=== PATIENT | female | born 1945 | race Caucasian/White ===

== ENCOUNTER 2018-03-13 00:57 | Inpatient (IN) ==
[2018-03-13 01:36] LABS: Baso # (Auto) 0.1 th/mm3 (0.0-0.2); Baso % (Auto) 0.6 % (0.0-2.0); Eos # (Auto) 0.2 th/mm3 (0.0-0.4); Eos % (Auto) 1.4 % (0.0-4.0); Hematocrit 51.8 % (35.0-46.0); Hemoglobin 16.8 gm/dL (11.6-15.3); Lymph # (Auto) 4.5 th/mm3 (1.0-4.8); Lymph % (Auto) 29.3 % (9.0-44.0); Mean Corpuscular HGB Conc 32.5 % (32.0-36.0); Mean Corpuscular Hemoglobin 27.7 pg (27.0-34.0); Mean Corpuscular Volume 85.3 fL (80.0-100.0); Mean Platelet Volume 9.9 fL (7.0-11.0); Mono # (Auto) 1.2 th/mm3 (0.0-0.9); Mono % (Auto) 7.5 % (0.0-8.0); Neut # (Auto) 9.5 th/mm3 (1.8-7.7); Neut % (Auto) 61.2 % (16.0-70.0); Platelet Count 215 th/mm3 (150-450); Red Blood Count 6.07 mil/mm3 (4.00-5.30); Red Cell Distribution Width 14.5 % (11.6-17.2); White Blood Count 15.5 th/mm3 (4.0-11.0)
[2018-03-13 01:41] LABS: ABG Base Excess -4.3 mmol/L (-2-2); ABG PCO2 46 mmHg (38-42); ABG PO2 155 mmHg (61-120)
[2018-03-13 01:45] LABS: Chloride 102 meq/L (98-107); Potassium 3.6 meq/L (3.5-5.1); Sodium 139 meq/L (136-145)
[2018-03-13 01:48] LABS: Calcium 8.2 mg/dL (8.5-10.1)
[2018-03-13 01:49] LABS: Albumin 3.3 g/dL (3.4-5.0); Anion Gap 18 meq/L (5-15); Blood Urea Nitrogen 18 mg/dL (7-18); Glucose,Random 185 mg/dL (74-106)
[2018-03-13 01:52] LABS: Alanine Aminotransferase 34 U/L (10-53); Aspartate Aminotransferase 29 U/L (15-37); Glomerular Filtration Rate 32 mL/min (>89)
[2018-03-13 01:53] LABS: Total Protein 7.6 g/dL (6.4-8.2)
[2018-03-13 01:55] LABS: Alkaline Phosphatase 154 U/L (45-117)
--- NOTE | 2018-03-13 01:55 | XR ---
EXAM DATE: 03/13/2018 1:23 AM EDT AGE/SEX: 72 years / Female INDICATIONS: . Short of breath. CLINICAL DATA: This is the patient's initial encounter. Patient reports that signs and symptoms have been present for 1 day and indicates a pain score of 0/10. MEDICAL/SURGICAL HISTORY: None. None. COMPARISON: No prior exams available for comparison. FINDINGS: The heart size is within normal limits. There is diffuse mixed interstitial and alveolar consolidatio n. There is a suspected calcified granuloma at the right base. Clips are seen over the right lower ch est. There appears to be postoperative change at the right sixth rib. CONCLUSION: Diffuse mixed interstitial and alveolar consolidation likely related to edema. Absence of the right sixth rib. This is likely postoperative change. If the patient did not have surg pham, and destruction would need to be considered. Electronically signed by: Karson Flores MD 03/13/2018 1:54 AM EDT
[2018-03-13 01:57] LABS: Troponin I 0.02 ng/mL (0.02-0.05)
--- NOTE | 2018-03-13 02:07 | ED ---
HPI General Chief Complaint: Shortness of Breath/Dyspnea Stated Complaint: EVAC/Resp failure Time Seen by Provider: 03/13/18 01:14 Source: patient and EMS Mode of arrival: EMS Limitations: altered mental status History of Present Illness Patient presents with history of cough postnasal drip and voice changes for the last 2 weeks. Tonight she had a panic attack went into the bathroom and came back saying that she could not take a deep breath and passed out. called rescue who responded and intubated and brought the patient to this emergency department. Patient was sedated and had good breath sounds bilaterally on presentation. Related Data Home Medications Medication Instructions Recorded Confirmed No Known Home Medications 03/13/18 03/13/18 Allergies Allergy/AdvReac Type Severity Reaction Status Date / Time Penicillins Allergy Severe Anaphylaxis Verified 03/13/18 01:11 moxifloxacin [From Avelox] Allergy Anaphylaxis Verified 03/13/18 01:11 naproxen Allergy Anaphylaxis Verified 03/13/18 01:11 Sulfa (Sulfonamide Allergy Anaphylaxis Verified 03/13/18 01:11 Antibiotics) Review of Systems ROS: all other systems reviewed are negative [facility] Social History Social History Substance History: No History of Abuse Second Hand Smoke Exposure: No Smoking Status: Never smoker How Often Do You Have a Drink Containing Alcohol: Monthly or less Recent Travel in [place] within the Last 8 Weeks: Yes Recent Out of Country Travel within the Last 8 Weeks: No Immunization History Tetanus Immunization: Unsure Hx Influenza Vaccine This Season: No Exam Narrative Exam Narrative: GENERAL: Patient presented intubated secondary to respiratory distress prior to arrival. Patient sedated with Versed prior to arrival. SKIN: Focused skin assessment warm/dry. HEAD: Atraumatic. Normocephalic. EYES: Pupils equal and round. No scleral icterus. No injection or drainage. ENT: No nasal bleeding or discharge. Mucous membranes pink and moist. NECK: Trachea midline. No JVD. CARDIOVASCULAR: Regular rate and rhythm. No murmur appreciated. RESPIRATORY: Patient had rales and rhonchi in both sides with breath sounds bilaterally. GASTROINTESTINAL: Abdomen soft,nondistended. Hepatic and splenic margins not palpable. MUSCULOSKELETAL: No obvious deformities. No clubbing. No cyanosis. No edema. NEUROLOGICAL: Initially unresponsive. Course Reevaluation(s) Reevaluation #1: Patient fighting intubation and able to ventilate with no resistance. Alternative of either sedation or extubation. Given the patient had such good respiration without assistance I made the decision to extubate the patient. This was done without difficulty and patient responded and was alert and functional and able to breathe on her own without assistance. Patient still had rales and rhonchi bilaterally and patient responded well to oxygen flow. Time: 01:12 Reevaluation #2: Chest x-ray shows infiltrate consistent with aspiration. Patient stable. Patient has no difficulty maintaining respiration on her own. Time: 03:31 Initial Documented Vital Signs Respiratory Rate 32 H 03/13/18 01:00 Pulse Oximetry 98 03/13/18 01:00 Last Documented Vital Signs Temperature 98.4 F 03/14/18 00:02 Pulse Rate 84 03/14/18 03:02 Respiratory Rate 21 03/14/18 03:02 Blood Pressure 142/74 H 03/14/18 03:02 Pulse Oximetry 91 L 03/14/18 03:02 Critical Care Time Critical Care Time: Yes Total Critical Care Time: 90 Attestation: Not applicable Medical Decision Making MDM Narrative Medical decision making narrative: Patient came in intubated secondary to what is perceived to be aspiration. Patient had history consistent with sinusitis for 2 weeks. Patient has a leukocytosis secondary to stress with no left shift Medical Screen Exam Complete: Yes Emergency Medical Condition: Yes Lab Data Result diagrams: 03/13/18 06:50 03/13/18 13:12 Lab Results 03/13/18 03/13/18 03/13/18 Range/Units 01:20 01:20 01:20 CBC w Diff Auto diff final WBC 15.5 H (4.0-11.0) th/mm3 RBC 6.07 H (4.00-5.30) mil/mm3 Hgb 16.8 H (11.6-15.3) gm/dL Hct 51.8 H (35.0-46.0) % MCV 85.3 (80.0-100.0) fL MCH 27.7 (27.0-34.0) pg MCHC 32.5 (32.0-36.0) % RDW 14.5 (11.6-17.2) % Plt Count 215 (150-450) th/mm3 MPV 9.9 (7.0-11.0) fL Neut % (Auto) 61.2 (16.0-70.0) % Lymph % (Auto) 29.3 (9.0-44.0) % [place] % (Auto) 7.5 (0.0-8.0) % Eos % (Auto) 1.4 (0.0-4.0) % Baso % (Auto) 0.6 (0.0-2.0) % Neut # (Auto) 9.5 H (1.8-7.7) th/mm3 Lymph # (Auto) 4.5 (1.0-4.8) th/mm3 [place] # (Auto) 1.2 H (0.0-0.9) th/mm3 Eos # (Auto) 0.2 (0.0-0.4) th/mm3 Baso # (Auto) 0.1 (0.0-0.2) th/mm3 WBC Differential . Differential Comment . ESR (0-30) mm/hr PT (9.8-11.6) sec INR Ratio APTT (24.3-30.1) sec D-Dimer Quant (PE/DVT) (0.00-0.50) mg/L FEU Puncture Site Patient Temperature O2 Saturation (90-100) % ABG pH (7.380-7.420) ABG pCO2 (38-42) mmHg ABG pO2 (61-120) mmHg ABG HCO3 (22-26) mmol/L ABG O2 Content (12.0-20.0) Vol % ABG Base Excess (-2-2) mmol/L ABG Methemoglobin (0-2) % Freedom Test Hemoglobin (12.0-16.0) G/DL Carboxyhemoglobin (0-4) % O2 Delivery Device Liter Flow L/M Critical Value Sodium 139 (136-145) meq/L Potassium 3.6 (3.5-5.1) meq/L Chloride 102 (98-107) meq/L Carbon Dioxide 19.0 L (21.0-32.0) meq/L Anion Gap 18 H (5-15) meq/L BUN 18 (7-18) mg/dL Creatinine 1.60 H (0.50-1.00) mg/dL Estimated GFR 32 L (>89) mL/min POC Glucose (68-110) mg/dl Random Glucose 185 H (74-106) mg/dL Lactic Acid (0.4-2.0) mmol/L Calcium 8.2 L (8.5-10.1) mg/dL Total Bilirubin 0.4 (0.2-1.0) mg/dL AST 29 (15-37) U/L ALT 34 (10-53) U/L Alkaline Phosphatase 154 H (45-117) U/L Troponin I 0.02 (0.02-0.05) ng/mL B-Natriuretic Peptide 397 H (0-100) pg/mL Total Protein 7.6 (6.4-8.2) g/dL Albumin 3.3 L (3.4-5.0) g/dL TSH (0.358-3.740) uIU/mL Urine Color (Yellw/Straw) Urine Clarity (Clear) Urine pH (5.0-8.5) Ur Specific [place] (1.002-1.035) Urine Protein (Neg-Trace) mg/dL Urine Glucose (UA) (Negative) mg/dL Urine Ketones (Negative) mg/dL Urine Occult Blood (Negative) Urine Nitrate (Negative) Urine Bilirubin (Negative) Urine Urobilinogen (Less than 2) mg/dL Ur Leukocyte Esterase (Negative) Urine WBC (0-5) /hpf Ur Squamous Epith Cells (0-5) /hpf Amorphous Sediment (None) /hpf Hyaline Casts (0-3) /lpf Granular Casts (None) /lpf Micro UA Comment Ur Microscopic Review Urine Culture Comments Nasal Screen MRSA (PCR) (Negative) Rheumatoid Factor Scrn (Negative) Rheumatoid Factor Titer 03/13/18 03/13/18 03/13/18 Range/Units 01:30 03:13 03:13 CBC w Diff WBC (4.0-11.0) th/mm3 RBC (4.00-5.30) mil/mm3 Hgb (11.6-15.3) gm/dL Hct (35.0-46.0) % MCV (80.0-100.0) fL MCH (27.0-34.0) pg MCHC (32.0-36.0) % RDW (11.6-17.2) % Plt Count (150-450) th/mm3 MPV (7.0-11.0) fL Neut % (Auto) (16.0-70.0) % Lymph % (Auto) (9.0-44.0) % [place] % (Auto) (0.0-8.0) % Eos % (Auto) (0.0-4.0) % Baso % (Auto) (0.0-2.0) % Neut # (Auto) (1.8-7.7) th/mm3 Lymph # (Auto) (1.0-4.8) th/mm3 [place] # (Auto) (0.0-0.9) th/mm3 Eos # (Auto) (0.0-0.4) th/mm3 Baso # (Auto) (0.0-0.2) th/mm3 WBC Differential Differential Comment ESR (0-30) mm/hr PT (9.8-11.6) sec INR Ratio APTT (24.3-30.1) sec D-Dimer Quant (PE/DVT) 5.88 H (0.00-0.50) mg/L FEU Puncture Site Left radial Patient Temperature 98.6 O2 Saturation 97 (90-100) % ABG pH 7.29 L* (7.380-7.420) ABG pCO2 46 H (38-42) mmHg ABG pO2 155 H (61-120) mmHg ABG HCO3 21 L (22-26) mmol/L ABG O2 Content 22.5 H (12.0-20.0) Vol % ABG Base Excess -4.3 L (-2-2) mmol/L ABG Methemoglobin 1.2 (0-2) % Freedom Test Present Hemoglobin 16.4 H (12.0-16.0) G/DL Carboxyhemoglobin 0.7 (0-4) % O2 Delivery Device Non-rebreathing mask Liter Flow 15.00 L/M Critical Value Yes Sodium (136-145) meq/L Potassium (3.5-5.1) meq/L Chloride (98-107) meq/L Carbon Dioxide (21.0-32.0) meq/L Anion Gap (5-15) meq/L BUN (7-18) mg/dL Creatinine (0.50-1.00) mg/dL Estimated GFR (>89) mL/min POC Glucose (68-110) mg/dl Random Glucose (74-106) mg/dL Lactic Acid 2.0 (0.4-2.0) mmol/L Calcium (8.5-10.1) mg/dL Total Bilirubin (0.2-1.0) mg/dL AST (15-37) U/L ALT (10-53) U/L Alkaline Phosphatase (45-117) U/L Troponin I (0.02-0.05) ng/mL B-Natriuretic Peptide (0-100) pg/mL Total Protein (6.4-8.2) g/dL Albumin (3.4-5.0) g/dL TSH (0.358-3.740) uIU/mL Urine Color (Yellw/Straw) Urine Clarity (Clear) Urine pH (5.0-8.5) Ur Specific [place] (1.002-1.035) Urine Protein (Neg-Trace) mg/dL Urine Glucose (UA) (Negative) mg/dL Urine Ketones (Negative) mg/dL Urine Occult Blood (Negative) Urine Nitrate (Negative) Urine Bilirubin (Negative) Urine Urobilinogen (Less than 2) mg/dL Ur Leukocyte Esterase (Negative) Urine WBC (0-5) /hpf Ur Squamous Epith Cells (0-5) /hpf Amorphous Sediment (None) /hpf Hyaline Casts (0-3) /lpf Granular Casts (None) /lpf Micro UA Comment Ur Microscopic Review Urine Culture Comments Nasal Screen MRSA (PCR) (Negative) Rheumatoid Factor Scrn (Negative) Rheumatoid Factor Titer 03/13/18 03/13/18 03/13/18 Range/Units 04:45 04:45 05:45 CBC w Diff WBC (4.0-11.0) th/mm3 RBC (4.00-5.30) mil/mm3 Hgb (11.6-15.3) gm/dL Hct (35.0-46.0) % MCV (80.0-100.0) fL MCH (27.0-34.0) pg MCHC (32.0-36.0) % RDW (11.6-17.2) % Plt Count (150-450) th/mm3 MPV (7.0-11.0) fL Neut % (Auto) (16.0-70.0) % Lymph % (Auto) (9.0-44.0) % [place] % (Auto) (0.0-8.0) % Eos % (Auto) (0.0-4.0) % Baso % (Auto) (0.0-2.0) % Neut # (Auto) (1.8-7.7) th/mm3 Lymph # (Auto) (1.0-4.8) th/mm3 [place] # (Auto) (0.0-0.9) th/mm3 Eos # (Auto) (0.0-0.4) th/mm3 Baso # (Auto) (0.0-0.2) th/mm3 WBC Differential Differential Comment ESR (0-30) mm/hr PT (9.8-11.6) sec INR Ratio APTT 27.2 (24.3-30.1) sec D-Dimer Quant (PE/DVT) (0.00-0.50) mg/L FEU Puncture Site Patient Temperature O2 Saturation (90-100) % ABG pH (7.380-7.420) ABG pCO2 (38-42) mmHg ABG pO2 (61-120) mmHg ABG HCO3 (22-26) mmol/L ABG O2 Content (12.0-20.0) Vol % ABG Base Excess (-2-2) mmol/L ABG Methemoglobin (0-2) % Freedom Test Hemoglobin (12.0-16.0) G/DL Carboxyhemoglobin (0-4) % O2 Delivery Device Liter Flow L/M Critical Value Sodium (136-145) meq/L Potassium (3.5-5.1) meq/L Chloride (98-107) meq/L Carbon Dioxide (21.0-32.0) meq/L Anion Gap (5-15) meq/L BUN (7-18) mg/dL Creatinine (0.50-1.00) mg/dL Estimated GFR (>89) mL/min POC Glucose (68-110) mg/dl Random Glucose (74-106) mg/dL Lactic Acid (0.4-2.0) mmol/L Calcium (8.5-10.1) mg/dL Total Bilirubin (0.2-1.0) mg/dL AST (15-37) U/L ALT (10-53) U/L Alkaline Phosphatase (45-117) U/L Troponin I (0.02-0.05) ng/mL B-Natriuretic Peptide (0-100) pg/mL Total Protein (6.4-8.2) g/dL Albumin (3.4-5.0) g/dL TSH (0.358-3.740) uIU/mL Urine Color Yellow (Yellw/Straw) Urine Clarity Clear (Clear) Urine pH 6.0 (5.0-8.5) Ur Specific [place] 1.015 (1.002-1.035) Urine Protein Trace (Neg-Trace) mg/dL Urine Glucose (UA) Negative (Negative) mg/dL Urine Ketones Negative (Negative) mg/dL Urine Occult Blood Trace (Negative) Urine Nitrate Negative (Negative) Urine Bilirubin Negative (Negative) Urine Urobilinogen 0.2 (Less than 2) mg/dL Ur Leukocyte Esterase Negative (Negative) Urine WBC 0-5 (0-5) /hpf Ur Squamous Epith Cells 0-5 (0-5) /hpf Amorphous Sediment Occ H (None) /hpf Hyaline Casts 0-3 (0-3) /lpf Granular Casts 1-3 H (None) /lpf Micro UA Comment Culture not ind Ur Microscopic Review Microscopic reviewed Urine Culture Comments Culture not ind Nasal Screen MRSA (PCR) Not detected (Negative) Rheumatoid Factor Scrn (Negative) Rheumatoid Factor Titer 03/13/18 03/13/18 03/13/18 Range/Units 05:45 06:50 06:50 CBC w Diff WBC 17.7 H (4.0-11.0) th/mm3 RBC 6.03 H (4.00-5.30) mil/mm3 Hgb 16.6 H (11.6-15.3) gm/dL Hct 51.5 H (35.0-46.0) % MCV 85.3 (80.0-100.0) fL MCH 27.5 (27.0-34.0) pg MCHC 32.3 (32.0-36.0) % RDW 15.0 (11.6-17.2) % Plt Count 188 (150-450) th/mm3 MPV 10.3 (7.0-11.0) fL Neut % (Auto) (16.0-70.0) % Lymph % (Auto) (9.0-44.0) % [place] % (Auto) (0.0-8.0) % Eos % (Auto) (0.0-4.0) % Baso % (Auto) (0.0-2.0) % Neut # (Auto) (1.8-7.7) th/mm3 Lymph # (Auto) (1.0-4.8) th/mm3 [place] # (Auto) (0.0-0.9) th/mm3 Eos # (Auto) (0.0-0.4) th/mm3 Baso # (Auto) (0.0-0.2) th/mm3 WBC Differential Differential Comment ESR (0-30) mm/hr PT 11.4 (9.8-11.6) sec INR 1.1 Ratio APTT (24.3-30.1) sec D-Dimer Quant (PE/DVT) (0.00-0.50) mg/L FEU Puncture Site Patient Temperature O2 Saturation (90-100) % ABG pH (7.380-7.420) ABG pCO2 (38-42) mmHg ABG pO2 (61-120) mmHg ABG HCO3 (22-26) mmol/L ABG O2 Content (12.0-20.0) Vol % ABG Base Excess (-2-2) mmol/L ABG Methemoglobin (0-2) % [place] Test Hemoglobin (12.0-16.0) G/DL Carboxyhemoglobin (0-4) % O2 Delivery Device Liter Flow L/M Critical Value Sodium (136-145) meq/L Potassium (3.5-5.1) meq/L Chloride (98-107) meq/L Carbon Dioxide (21.0-32.0) meq/L Anion Gap (5-15) meq/L BUN (7-18) mg/dL Creatinine (0.50-1.00) mg/dL Estimated GFR (>89) mL/min POC Glucose (68-110) mg/dl Random Glucose (74-106) mg/dL Lactic Acid (0.4-2.0) mmol/L Calcium (8.5-10.1) mg/dL Total Bilirubin (0.2-1.0) mg/dL AST (15-37) U/L ALT (10-53) U/L Alkaline Phosphatase (45-117) U/L Troponin I 0.17 H D (0.02-0.05) ng/mL B-Natriuretic Peptide (0-100) pg/mL Total Protein (6.4-8.2) g/dL Albumin (3.4-5.0) g/dL TSH (0.358-3.740) uIU/mL Urine Color (Yellw/Straw) Urine Clarity (Clear) Urine pH (5.0-8.5) Ur Specific [place] (1.002-1.035) Urine Protein (Neg-Trace) mg/dL Urine Glucose (UA) (Negative) mg/dL Urine Ketones (Negative) mg/dL Urine Occult Blood (Negative) Urine Nitrate (Negative) Urine Bilirubin (Negative) Urine Urobilinogen (Less than 2) mg/dL Ur Leukocyte Esterase (Negative) Urine WBC (0-5) /hpf Ur Squamous Epith Cells (0-5) /hpf Amorphous Sediment (None) /hpf Hyaline Casts (0-3) /lpf Granular Casts (None) /lpf Micro UA Comment Ur Microscopic Review Urine Culture Comments Nasal Screen MRSA (PCR) (Negative) Rheumatoid Factor Scrn (Negative) Rheumatoid Factor Titer 03/13/18 03/13/18 03/13/18 Range/Units 06:50 13:12 13:12 CBC w Diff WBC (4.0-11.0) th/mm3 RBC (4.00-5.30) mil/mm3 Hgb (11.6-15.3) gm/dL Hct (35.0-46.0) % MCV (80.0-100.0) fL MCH (27.0-34.0) pg MCHC (32.0-36.0) % RDW (11.6-17.2) % Plt Count (150-450) th/mm3 MPV (7.0-11.0) fL Neut % (Auto) (16.0-70.0) % Lymph % (Auto) (9.0-44.0) % [place] % (Auto) (0.0-8.0) % Eos % (Auto) (0.0-4.0) % Baso % (Auto) (0.0-2.0) % Neut # (Auto) (1.8-7.7) th/mm3 Lymph # (Auto) (1.0-4.8) th/mm3 [place] # (Auto) (0.0-0.9) th/mm3 Eos # (Auto) (0.0-0.4) th/mm3 Baso # (Auto) (0.0-0.2) th/mm3 WBC Differential Differential Comment ESR (0-30) mm/hr PT (9.8-11.6) sec INR Ratio APTT (24.3-30.1) sec D-Dimer Quant (PE/DVT) (0.00-0.50) mg/L FEU Puncture Site Patient Temperature O2 Saturation (90-100) % ABG pH (7.380-7.420) ABG pCO2 (38-42) mmHg ABG pO2 (61-120) mmHg ABG HCO3 (22-26) mmol/L ABG O2 Content (12.0-20.0) Vol % ABG Base Excess (-2-2) mmol/L ABG Methemoglobin (0-2) % Freedom Test Hemoglobin (12.0-16.0) G/DL Carboxyhemoglobin (0-4) % O2 Delivery Device Liter Flow L/M Critical Value Sodium 141 (136-145) meq/L Potassium 3.5 (3.5-5.1) meq/L Chloride 104 (98-107) meq/L Carbon Dioxide 25.0 (21.0-32.0) meq/L Anion Gap 12 (5-15) meq/L BUN 18 (7-18) mg/dL Creatinine 1.40 H (0.50-1.00) mg/dL Estimated GFR 37 L (>89) mL/min POC Glucose (68-110) mg/dl Random Glucose 180 H (74-106) mg/dL Lactic Acid (0.4-2.0) mmol/L Calcium 7.8 L (8.5-10.1) mg/dL Total Bilirubin 1.0 (0.2-1.0) mg/dL AST 30 (15-37) U/L ALT 35 (10-53) U/L Alkaline Phosphatase 113 (45-117) U/L Troponin I 0.12 H (0.02-0.05) ng/mL B-Natriuretic Peptide (0-100) pg/mL Total Protein 6.7 D (6.4-8.2) g/dL Albumin 3.1 L (3.4-5.0) g/dL TSH 0.776 (0.358-3.740) uIU/mL Urine Color (Yellw/Straw) Urine Clarity (Clear) Urine pH (5.0-8.5) Ur Specific [place] (1.002-1.035) Urine Protein (Neg-Trace) mg/dL Urine Glucose (UA) (Negative) mg/dL Urine Ketones (Negative) mg/dL Urine Occult Blood (Negative) Urine Nitrate (Negative) Urine Bilirubin (Negative) Urine Urobilinogen (Less than 2) mg/dL Ur Leukocyte Esterase (Negative) Urine WBC (0-5) /hpf Ur Squamous Epith Cells (0-5) /hpf Amorphous Sediment (None) /hpf Hyaline Casts (0-3) /lpf Granular Casts (None) /lpf Micro UA Comment Ur Microscopic Review Urine Culture Comments Nasal Screen MRSA (PCR) (Negative) Rheumatoid Factor Scrn (Negative) Rheumatoid Factor Titer 03/13/18 03/13/18 03/13/18 Range/Units 13:12 16:45 22:40 CBC w Diff WBC (4.0-11.0) th/mm3 RBC (4.00-5.30) mil/mm3 Hgb (11.6-15.3) gm/dL Hct (35.0-46.0) % MCV (80.0-100.0) fL MCH (27.0-34.0) pg MCHC (32.0-36.0) % RDW (11.6-17.2) % Plt Count (150-450) th/mm3 MPV (7.0-11.0) fL Neut % (Auto) (16.0-70.0) % Lymph % (Auto) (9.0-44.0) % [place] % (Auto) (0.0-8.0) % Eos % (Auto) (0.0-4.0) % Baso % (Auto) (0.0-2.0) % Neut # (Auto) (1.8-7.7) th/mm3 Lymph # (Auto) (1.0-4.8) th/mm3 [place] # (Auto) (0.0-0.9) th/mm3 Eos # (Auto) (0.0-0.4) th/mm3 Baso # (Auto) (0.0-0.2) th/mm3 WBC Differential Differential Comment ESR 1 (0-30) mm/hr PT (9.8-11.6) sec INR Ratio APTT (24.3-30.1) sec D-Dimer Quant (PE/DVT) (0.00-0.50) mg/L FEU Puncture Site Patient Temperature O2 Saturation (90-100) % ABG pH (7.380-7.420) ABG pCO2 (38-42) mmHg ABG pO2 (61-120) mmHg ABG HCO3 (22-26) mmol/L ABG O2 Content (12.0-20.0) Vol % ABG Base Excess (-2-2) mmol/L ABG Methemoglobin (0-2) % Freedom Test Hemoglobin (12.0-16.0) G/DL Carboxyhemoglobin (0-4) % O2 Delivery Device Liter Flow L/M Critical Value Sodium (136-145) meq/L Potassium (3.5-5.1) meq/L Chloride (98-107) meq/L Carbon Dioxide (21.0-32.0) meq/L Anion Gap (5-15) meq/L BUN (7-18) mg/dL Creatinine (0.50-1.00) mg/dL Estimated GFR (>89) mL/min POC Glucose 166 H (68-110) mg/dl Random Glucose (74-106) mg/dL Lactic Acid (0.4-2.0) mmol/L Calcium (8.5-10.1) mg/dL Total Bilirubin (0.2-1.0) mg/dL AST (15-37) U/L ALT (10-53) U/L Alkaline Phosphatase (45-117) U/L Troponin I (0.02-0.05) ng/mL B-Natriuretic Peptide (0-100) pg/mL Total Protein (6.4-8.2) g/dL Albumin (3.4-5.0) g/dL TSH (0.358-3.740) uIU/mL Urine Color (Yellw/Straw) Urine Clarity (Clear) Urine pH (5.0-8.5) Ur Specific [place] (1.002-1.035) Urine Protein (Neg-Trace) mg/dL Urine Glucose (UA) (Negative) mg/dL Urine Ketones (Negative) mg/dL Urine Occult Blood (Negative) Urine Nitrate (Negative) Urine Bilirubin (Negative) Urine Urobilinogen (Less than 2) mg/dL Ur Leukocyte Esterase (Negative) Urine WBC (0-5) /hpf Ur Squamous Epith Cells (0-5) /hpf Amorphous Sediment (None) /hpf Hyaline Casts (0-3) /lpf Granular Casts (None) /lpf Micro UA Comment Ur Microscopic Review Urine Culture Comments Nasal Screen MRSA (PCR) (Negative) Rheumatoid Factor Scrn Negative (Negative) Rheumatoid Factor Titer Not Reportable Imaging Data Radiologist's impression: Abdomen/Bladder Ultrasound 03/13/18 00:00 CONCLUSION: 1. Small cortical cyst in the left kidney. 2. Mild thickening of the anterior aspect of the bladder wall. Cystoscopy may be of benefit for further assessment.. Chest CTA 03/13/18 00:00 CONCLUSION: 1. Examination quality mildly degraded by respiratory motion artifact. However , no PE is identified. 2. Severe groundglass opacity and consolidation bilaterally, as above. As described on the a prior chest x-ray pulmonary edema is a one consideration. Other inflammatory processes are possible as well. Suggest follow-up imaging to confirm resolution. 3. Small right pleural effusion. Chest X-Ray 03/13/18 01:23 CONCLUSION: Diffuse mixed interstitial and alveolar consolidation likely related to edema. Absence of the right sixth rib. This is likely postoperative change. If the patient did not have surgery, and destruction would need to be considered. Discharge Plan Discharge Disposition Patient Disposition: 30 Still Patient Discharge Details Diagnosis: Acute respiratory distress, Aspiration into lower respiratory tract, Sinusitis Physicians Team ED Provider: Geovani Joseph Primary Care Provider: UNKNOWN, Attending Provider: Megan Hall Other Providers: Edy Wray ; Agapito Giron ; Kanu Coronado Discharge Interventions Interventions: ED Discharge Assessment Last Done: 03/13/18 03:38 Vital Signs Last Done: 03/13/18 02:37 Status ED Status: Left Department Discharge Information Discharge Date/Time: 03/13/18 04:06
[2018-03-13] MEDS ORDERED: Acetaminophen 325 MG Tablet PO PRN (02:43)
[2018-03-13] MEDS ORDERED: Bisacodyl 10 MG Supp RECTAL PRN (02:43)
[2018-03-13] MEDS ORDERED: Enoxaparin Inj 40 MG/0.4 ML Syringe SQ SCH ×2 (02:45→04:00)
[2018-03-13] MEDS ORDERED: Chlorhexidine Gluconate 2% 1 Pack (2 Cloths) TOPICAL PRN (04:00)
[2018-03-13 05:13] LABS: Bilirubin,Urine Negative (Negative); Clarity,Urine Clear (Clear); Color,Urine Yellow (Yellw/Straw); Glucose,Urine (UA) Negative (Negative); Leukocyte Esterase,Urine Negative (Negative); Nitrite,Urine Negative (Negative); Specific Gravity,Urine 1.015 (1.002-1.035); Urobilinogen,Urine 0.2 mg/dL (Less than 2)
[2018-03-13] MEDS ORDERED: Enoxaparin Inj 120 MG/0.8 ML Syringe SQ ONE (05:30)
[2018-03-13 05:40] LABS: Hyaline Casts,Urine 0-3 /lpf (0-3)
[2018-03-13 05:41] LABS: Amorphous Sediment,Urine Occ /hpf; Squamous Epithelial Cell,Urine 0-5 /hpf (0-5); WBC,Urine 0-5 /hpf (0-5)
[2018-03-13] MEDS: Chlorhexidine Gluconate 2% 1 Pack (2 Cloths) TOPICAL SCH (05:56)
[2018-03-13] MEDS ORDERED: Vancomycin Inj 1 GM/200 ML PIGGYBACK IV.SIG ONE (06:49)
[2018-03-13 06:51] LABS: INR 1.1 Ratio; Prothrombin Time 11.4 sec (9.8-11.6)
--- NOTE | 2018-03-13 06:53 | P.HPCC ---
History of Present Illness Service: Critical care Primary Care Physician: UNKNOWN Chief Complaint: Shortness of breath hypoxia History of Present Illness: Patient is a 72-year-old female with past medical history significant for breast cancer treated with right mastectomy and radiation 5 years ago, right lower lobectomy approximately at 21 years of age for suspected Hodgkin's disease , biopsy showed histoplasmosis, morbid obesity. She apparently had cough and postnasal drip and voice changes for the last 2 weeks. According to the she went to the bathroom could not catch her breath became acutely short of breath called for help and passed out. EMS was called who intubated her with etomidate. In the ED patient was quite distressed from the ET tube. For this matter and improved oxygenation patient was extubated. However she was hypoxic post extubation and was placed on 100% nonrebreather. A chest x- ray showed bilateral interstitial infiltrates, and postop changes from right lower lobectomy. Patient has no history of CHF. I evaluated the patient in the [facility] ICU. Her white count is 15.5. Her BUN is 18 with a creatinine of 1.6. BNP was 397 bicarb was 19 with an anion gap of 18. Chest x-ray shows bilateral interstitial infiltrates. It certainly possible she has community-acquired pneumonia/atypical pneumonia. I will get blood sputum and urine cultures, check for influenza, started on Rocephin azithromycin and give 1 dose of vancomycin. A CT pulmonary angiogram to rule out PE is being done. 2D echo to evaluate LV function. Because of interstitial edema placed on scheduled Lasix 20 mg every 12 hours already received 20 mg IV push. D- Dimer was elevated 5.88, Lovenox 120 mg x1 given while waiting for CT pulmonary angiogram - Diagnosis (1) Acute hypoxemic respiratory failure (2) Pulmonary edema (3) Pneumonia (4) Sepsis (5) Acute kidney insufficiency (6) History of lobectomy of lung (7) H/O right mastectomy (8) History of breast cancer (9) History of histoplasmosis Inpatient Certification: I certify that the inpatient services were ordered in accordance with Medicare regulations governing the order. This includes certification that hospital inpatient services are reasonable and necessary and in the case of services not specified as inpatient-only under 42 CFR 419.22(n), that they are appropriately provided as inpatient services in accordance to with the 2-midnight benchmark under 43 CFR 412.3(e) Estimated Total Length of Stay (Days): 2 Plans for Post Hospital Care: Not yet determined Review of Systems All other systems reviewed negative except as stated in HPI [facility] - History History Provided By: Patient - Medical History Medical History: Medical History (Last Updated 03/13/18 @ 01:40 by Bassam Bennett, RN) History of breast cancer - Surgical History Surgical History: Surgical History (Last Updated 03/13/18 @ 01:40 by Bassam Bennett RN) History of cholecystectomy History of right mastectomy Status post partial removal of lung - Tobacco History Second Hand Smoke Exposure: No Smoking Status: Never smoker - Alcohol History How Often Do You Have a Drink Containing Alcohol: Monthly or less - Substance Use History Substance History: No History of Abuse - Travel History Recent Travel in the [place] Within the Last 8 Weeks: Yes Recent Travel Out of the Country Within the Last 8 Weeks: No - Immunization History Tetanus Immunization: Unsure Hx Influenza Vaccine This Season: No Medications and Allergies Active Medications: Active Medications Acetaminophen (Tylenol) 650 mg PO Q6H PRN PRN Reason: PAIN 1-10 AND/OR FEVER >101F Al Hydroxide/Mg Hydroxide (Milk Of Julio Cesar Liq) 30 ml PO Q12H PRN PRN Reason: Mild Constipation Albuterol (Albuterol Neb (Prn)) 2.5 mg NEB Q2HR NEB PRN PRN Reason: SHORTNESS OF BREATH/WHEEZING Albuterol (Duoneb Neb (Karen)) 1 ampul NEB Q6HR NEB KAREN Bisacodyl (Dulcolax Supp) 10 mg RECTAL DAILY PRN PRN Reason: SEVERE CONSITIPATION Chlorhexidine Gluconate (Chlorhexidine 2% Cloth) 3 pack TOPICAL DAILY@0400 [facility] Stop: 03/18/18 03:59 Last Admin: 03/13/18 05:56 Dose: 3 pack Chlorhexidine Gluconate (Chlorhexidine 2% Cloth) 3 pack TOPICAL DAILY@0400 PRN PRN Reason: Extra cloth needed Stop: 03/18/18 03:59 Famotidine (Pepcid) 20 mg PO BID KAREN Furosemide (Lasix Inj) 20 mg IV.PUSH BID@0900,1800 KAREN Aztreonam 2 gm/ Sodium (Chloride) 100 mls @ 200 mls/hr IV.SIG Q8H KAREN Azithromycin 500 mg/ Sodium (Chloride) 250 mls @ 250 mls/hr IV.SIG Q24H KAREN Lactulose (Lactulose Liq) 30 ml PO DAILY PRN PRN Reason: SEVERE CONSITIPATION Ondansetron HCl (Zofran Inj) 4 mg IV.PUSH Q6H PRN PRN Reason: NAUSEA OR VOMITING Senna/Docusate Sodium (Eboni-Colace) 1 tab PO BID KAREN Sennosides (Senokot) 17.2 mg PO Q12H PRN PRN Reason: Moderate Constipation Sodium Chloride (Ns Flush) 2 ml IV.FLUSH BID KAREN Sodium Chloride (Ns Flush) 2 ml IV.FLUSH PRN PRN PRN Reason: FLUSH AFTER USING IV ACCESS Allergies Allergy/AdvReac Type Severity Reaction Status Date / Time Penicillins Allergy Severe Anaphylaxis Verified 03/13/18 01:11 moxifloxacin [From Avelox] Allergy Anaphylaxis Verified 03/13/18 01:11 naproxen Allergy Anaphylaxis Verified 03/13/18 01:11 Sulfa (Sulfonamide Allergy Anaphylaxis Verified 03/13/18 01:11 Antibiotics) Home Medications Medication Instructions Recorded Confirmed Type No Known Home Medications 03/13/18 03/13/18 History Results - Labs CBC & Chem 7: 03/13/18 01:20 03/13/18 01:20 Labs: Short CBC 03/13/18 Range/Units 01:20 WBC 15.5 H (4.0-11.0) th/mm3 Hgb 16.8 H (11.6-15.3) gm/dL Hct 51.8 H (35.0-46.0) % Plt Count 215 (150-450) th/mm3 BMP 03/13/18 01:20 Sodium 139 Potassium 3.6 Chloride 102 Carbon Dioxide 19.0 L BUN 18 Creatinine 1.60 H Calcium 8.2 L Cardiac Enzymes 03/13/18 Range/Units 01:20 Troponin I 0.02 (0.02-0.05) ng/mL Liver Function 03/13/18 Range/Units 01:20 Total Bilirubin 0.4 (0.2-1.0) mg/dL AST 29 (15-37) U/L ALT 34 (10-53) U/L Alkaline Phosphatase 154 H (45-117) U/L Albumin 3.3 L (3.4-5.0) g/dL Urine 03/13/18 Range/Units 04:45 Urine Color Yellow (Yellw/Straw) Urine Clarity Clear (Clear) Urine pH 6.0 (5.0-8.5) Ur Specific [place] 1.015 (1.002-1.035) Urine Protein Trace (Neg-Trace) mg/dL Urine Glucose (UA) Negative (Negative) mg/dL - Imaging Impressions Chest X-Ray 03/13/18 01:23 CONCLUSION: Diffuse mixed interstitial and alveolar consolidation likely related to edema. Absence of the right sixth rib. This is likely postoperative change. If the patient did not have surgery, and destruction would need to be considered. Exam Vital signs: Vital Signs 03/13/18 01:00 03/13/18 01:15 03/13/18 01:24 Temperature Pulse Rate 116 H Respiratory Rate 32 H Blood Pressure 191/94 H Pulse Oximetry 98 98 98 03/13/18 01:29 03/13/18 02:37 03/13/18 02:57 Temperature 98 F Pulse Rate 116 H 114 H 114 H Respiratory Rate 20 18 22 Blood Pressure 145/74 H Pulse Oximetry 97 99 03/13/18 04:00 03/13/18 05:00 03/13/18 05:35 Temperature 97.5 F L Pulse Rate 117 H 102 H Respiratory Rate 24 22 Blood Pressure 119/64 164/79 H Pulse Oximetry 96 100 97 03/13/18 06:00 Temperature Pulse Rate 103 H Respiratory Rate 20 Blood Pressure 126/78 Pulse Oximetry 100 Intake & Output 03/12/18 03/12/18 03/13/18 06:59 18:59 06:59 Output Total 1100 / 1100 Balance -1100 / -1100 Weight 124.8 kg Output: Urine 1100 / 1100 Other: # Voids 3 # Incontinent Voids 1 Date of Last Bowel Movement 03/12/18 Weight On Admission 125.1 kg Narrative: GENERAL: Alert and responsive. Mild distress currently on partial nonrebreather SKIN: Focused skin assessment warm/dry. HEAD: Atraumatic. Normocephalic. EYES: Pupils equal and round. No scleral icterus. No injection or drainage. ENT: No nasal bleeding or discharge. NECK: Trachea midline. No JVD. CARDIOVASCULAR: Regular rate and rhythm. No murmur appreciated. CHEST: Well-healed scars from right mastectomy and right lower lobectomy RESPIRATORY: Mild accessory muscle use. Breath sounds equal bilaterally. Bilateral fine crackles posteriorly GASTROINTESTINAL: Abdomen soft, non-tender, nondistended. Hepatic and splenic margins not palpable. MUSCULOSKELETAL: No obvious deformities. No clubbing. No cyanosis. No edema. NEUROLOGICAL: Awake and alert. No obvious cranial nerve deficits. Motor grossly within normal limits. Normal speech. Septic Shock Reassessment Septic shock perfusion: reassessment completed Caprini VTE Risk Assessment Caprini VTE Risk Assessment: Moderate/High Risk (score >= 2) Caprini Risk Assessment Model: Point Value = 1 Point Value = 2 Point Value = 3 Point Value = 5 Age 41-60 Minor surgery BMI > 25 kg/m2 Swollen legs Varicose veins or History of unexplained or recurrent spontaneous Oral contraceptives or hormone replacement Sepsis (< 1 month) Serious lung disease, including pneumonia (< 1 month) Abnormal pulmonary function Acute myocardial infarction Congestive heart failure (< 1 month) History of inflammatory bowel disease Medical patient at bed rest Age 61-74 Arthroscopic surgery Major open surgery (> 45 min) Laparoscopic surgery (> 45 min) Malignancy Confined to bed (> 72 hours) Immobilizing plaster cast Central venous access Age >= 75 History of VTE Family history of VTE Factor V Leiden Prothrombin [id number] Lupus anticoagulant Anticardiolipin antibodies Elevated serum homocysteine Heparin-induced thrombocytopenia Other congenital or acquired thrombophilia Stroke (< 1 month) Elective arthroplasty Hip, pelvis, or leg fracture Acute spinal cord injury (< 1 month) Prophylaxis Regimen: Total Risk Factor Score Risk Level Prophylaxis Regimen 0-1 Low Early ambulation 2 Moderate Order ONE of the following: *Sequential Compression Device (SCD) *Heparin 5000 units SQ BID 3-4 Higher Order ONE of the following medications: *Heparin 5000 units SQ TID *Enoxaparin/Lovenox 40 mg SQ daily (WT < 150 kg, CrCl > 30 mL/min) *Enoxaparin/Lovenox 30 mg SQ daily (WT < 150 kg, CrCl > 10-29 mL/min) *Enoxaparin/Lovenox 30 mg SQ BID (WT < 150 kg, CrCl > 30 mL/min) AND/OR *Sequential Compression Device (SCD) 5 or more Highest Order ONE of the following medications: *Heparin 5000 units SQ TID (Preferred with Epidurals) *Enoxaparin/Lovenox 40 mg SQ daily (WT < 150 kg, CrCl > 30 mL/min) *Enoxaparin/Lovenox 30 mg SQ daily (WT < 150 kg, CrCl > 10-29 mL/min) *Enoxaparin/Lovenox 30 mg SQ BID (WT < 150 kg, CrCl > 30 mL/min) AND *Sequential Compression Device (SCD) Assessment and Plan - Problem List (1) Acute hypoxemic respiratory failure Code(s): J96.01 - Acute respiratory failure with hypoxia Status: Acute (2) Pulmonary edema Code(s): J81.1 - Chronic pulmonary edema Status: Acute (3) Pneumonia Code(s): J18.9 - Pneumonia, unspecified organism Status: Acute (4) Sepsis Code(s): A41.9 - Sepsis, unspecified organism Status: Acute (5) Acute kidney insufficiency Code(s): N28.9 - Disorder of kidney and ureter, unspecified Status: Acute (6) History of lobectomy of lung Code(s): Z90.2 - Acquired absence of lung [part of] Status: Chronic (7) H/O right mastectomy Code(s): Z90.11 - Acquired absence of right breast and nipple Status: Chronic (8) History of breast cancer Code(s): Z85.3 - Personal history of malignant neoplasm of breast Status: Chronic (9) History of histoplasmosis Code(s): Z86.19 - Personal history of other infectious and parasitic diseases Status: Resolved - Assessment and Plan Plan: NEURO: -Minimize sedation RESP: Acute hypoxemic respiratory failure Probable pneumonia/atypical Bilateral pulmonary edema Elevated d-dimer History of histoplasmosis History of right lower lobectomy -On partial nonrebreather, wean FiO2 to keep saturation more than 90% -Use BiPAP as needed -DuoNeb every 6 hours scheduled and as needed -Broad-spectrum antibiotics with Rocephin and azithromycin and 1 dose of vancomycin -Check influenza, sputum culture, blood culture, check urine for Legionella and pneumococcal antigen -CT pulmonary angiogram to rule out PE is pending at this time, patient received 120 mg of Lovenox x1 -Pulmonology consult CV: Pulmonary edema -Unclear if this is cardiogenic versus noncardiogenic -BNP elevated patient is hypoxemic good response IV Lasix 20 -Scheduled Lasix 20 mg IV every 12 -Await 2D echo, get serial troponins GI: -Cardiac diet, IV famotidine : Acute kidney insufficiency -Monitor renal function closely. -IV Lasix as above -Check renal ultrasound, check UA ID: Probable sepsis Probable pneumonia -Broad-spectrum antibiotics with Rocephin and azithromycin and 1 dose of vancomycin -Check influenza, sputum culture, blood culture, -Check urine for Legionella and pneumococcal antigen HEME: History of breast cancer Elevated d-dimer -Status post radiation and mastectomy 5 years ago -Monitor CBC, coags ENDO: Hyperglycemia -Electrolyte replacement per protocol -Sliding scale insulin if needed PROPH: -Bilateral lower extremity SCDs. -Lovenox 120 mg x1 given. A[address] CT angiogram -Famotidine for GI prophylaxis LINES: -Utilize peripheral IVs, central line if needed CC time 35 min Code Status: Full H&P: Quality - VTE Deep Vein Thrombosis/Pulmonary Embolism Present on Admission: No
[2018-03-13] MEDS ORDERED: Potassium Chlor 40 mEq Premix 40 MEQ/100 ML PIGGYBACK IV.SIG PRN ×2 (07:10)
[2018-03-13] MEDS ORDERED: Potassium Phosphate Inj 30 MMOL in Sodium Chlor 0.9% Inj 250 ML IV.SIG PRN (07:10)
[2018-03-13] MEDS ORDERED: Sodium Phosphate Inj 30 MMOL in Sodium Chlor 0.9% Inj 250 ML IV.SIG PRN (07:10)
[2018-03-13] MEDS ORDERED: Magnesium Sulfate Inj 4 GM in Sodium Chlor 0.9% Inj 92 ML IV.SIG PRN (07:10)
[2018-03-13] MEDS ORDERED: Potassium Chlor 20 mEq Premix 20 MEQ/100 ML PIGGYBACK IV.SIG PRN ×2 (07:10)
[2018-03-13] MEDS ORDERED: Magnesium Oxide 400 MG Tablet PO PRN (07:10)
[2018-03-13] MEDS ORDERED: Potassium Phosphate 500 MG Soluble Tablet PO PRN ×2 (07:10)
[2018-03-13] MEDS ORDERED: Magnesium Sulfate Inj 2 GM in Sodium Chlor 0.9% Inj 96 ML IV.SIG PRN (07:10)
[2018-03-13] MEDS ORDERED: Potassium Chloride 25 MEQ Effervescent Tablet PO PRN (07:10)
--- NOTE | 2018-03-13 07:22 | CT ---
EXAM DATE: 03/13/2018 6:24 AM EDT AGE/SEX: 72 years / Female INDICATIONS: Chest pain and short of breath. CLINICAL DATA: This is the patient's initial encounter. Patient reports that signs and symptoms have been present for 1 day and indicates a pain score of 2/10. MEDICAL/SURGICAL HISTORY: Carcinoma, breast. Cholecystectomy. Mastectomy, right. RADIATION DOSE: 21.68 CTDI (mGy) COMPARISON: No prior exams available for comparison. TECHNIQUE: Volumetric scanning was performed using a multi-row detector CT scanner during bolus infu pawel of 50 ml Visipaque 320 (iodixanol) nonionic water-soluble contrast as a single exam dose. The d freddie was post processed with a variety of visualization algorithms including full volume maximum inten sity projection and sliding thin slab reformation. Using automated exposure control and adjustment o f the mA and/or kV according to patient size, radiation dose was kept as low as reasonably achievable to obtain optimal diagnostic quality images. DICOM format image data is available electronically fo r review and comparison. FINDINGS: There is respiratory motion artifact. Pulmonary Arteries: No filling defect is identified through the segmental level pulmonary arteries. Lungs: There is moderate to severe groundglass opacity and consolidation bilaterally predominantly i n a central perihilar and upper lung zone distribution. However, the abnormality involves all lobes. It relatively spares the periphery of the lungs. An 8 mm calcified granuloma is present in the right lower lobe. No pneumothorax is present. Mediastinum: The heart and great vessels demonstrate no acute abnormality. There is a mildly enlarge d noncalcified right hilar lymph node measuring 12 mm in short axis diameter. There are nonenlarged c alcified mediastinal and right hilar lymph nodes. Pleurae: There is a small right pleural effusion. Axillae: No lymphadenopathy. Musculoskeletal: No acute osseous abnormality is identified. There are degenerative changes of the t horacic spine. Right sixth rib changes are identified with appearance suggesting prior surgery. Alter natively, it is possible this is a congenital anomaly. Other: Visualized upper abdominal structures demonstrate no acute abnormality. Patient is post tracy cystectomy clips in the gallbladder fossa. There are innumerable calcifications within the spleen. Ri ght breast implant is present. CONCLUSION: 1. Examination quality mildly degraded by respiratory motion artifact. However, no PE is identified. 2. Severe groundglass opacity and consolidation bilaterally, as above. As described on the a prior c hest x-ray pulmonary edema is a one consideration. Other inflammatory processes are possible as well. Suggest follow-up imaging to confirm resolution. 3. Small right pleural effusion. Electronically signed by: Karson Thomas MD 03/13/2018 7:21 AM EDT
[2018-03-13 08:00] LABS: Hematocrit 51.5 % (35.0-46.0); Hemoglobin 16.6 gm/dL (11.6-15.3); Mean Corpuscular HGB Conc 32.3 % (32.0-36.0); Mean Corpuscular Hemoglobin 27.5 pg (27.0-34.0); Mean Corpuscular Volume 85.3 fL (80.0-100.0); Mean Platelet Volume 10.3 fL (7.0-11.0); Platelet Count 188 th/mm3 (150-450); Red Blood Count 6.03 mil/mm3 (4.00-5.30); White Blood Count 17.7 th/mm3 (4.0-11.0)
[2018-03-13] MEDS: Azithromycin Inj 500 MG in Sodium Chlor 0.9% Inj 250 ML IV.SIG SCH (08:23)
[2018-03-13] MEDS: Famotidine 20 MG Tablet PO SCH ×2 (08:23→21:54)
[2018-03-13] MEDS: Aztreonam Inj 2 GM in Sodium Chloride 0.9% Inj 100 ML IV.SIG SCH ×3 (08:23→23:37)
[2018-03-13] MEDS: Senna/Docusate Sodium 8.6/50 MG Tablet PO SCH ×2 (08:24→21:54)
[2018-03-13] MEDS ORDERED: Vancomycin Inj 1,000 MG in Sodium Chlor 0.9% Inj 250 ML IV.SIG ONE (09:00)
--- NOTE | 2018-03-13 09:43 | ECG ---
Date Performed: 03/13/2018 Time Performed: 06:18:26 PTAGE: 72 years EKG: SINUS TACHYCARDIA NONSPECIFIC ST & T-WAVE ABNORMALITY ABNORMAL ECG No significant change fr om prior electrocardiogram. DOCTOR: Lopez Pat Interpretating Date/Time 03/13/2018 09:42:48
--- NOTE | 2018-03-13 09:49 | ECG ---
Date Performed: 03/13/2018 Time Performed: 01:07:30 PTAGE: 72 years EKG: Baseline artifact present SINUS TACHYCARDIA WITH SHORT MD INTERVAL POSSIBLE LEFT ATRIAL ENL ARGEMENT NONSPECIFIC ST & T-WAVE ABNORMALITY ABNORMAL ECG NO PREVIOUS TRACING DOCTOR: Lopez Pat Interpretating Date/Time 03/13/2018 09:48:36
[2018-03-13 13:29] LABS: Chloride 104 meq/L (98-107); Potassium 3.5 meq/L (3.5-5.1); Sodium 141 meq/L (136-145)
[2018-03-13 13:32] LABS: Calcium 7.8 mg/dL (8.5-10.1)
[2018-03-13 13:33] LABS: Albumin 3.1 g/dL (3.4-5.0); Anion Gap 12 meq/L (5-15); Blood Urea Nitrogen 18 mg/dL (7-18); Glucose,Random 180 mg/dL (74-106)
[2018-03-13 13:36] LABS: Alanine Aminotransferase 35 U/L (10-53); Aspartate Aminotransferase 30 U/L (15-37); Glomerular Filtration Rate 37 mL/min (>89)
[2018-03-13 13:37] LABS: Total Protein 6.7 g/dL (6.4-8.2)
[2018-03-13 13:39] LABS: Alkaline Phosphatase 113 U/L (45-117)
[2018-03-13] MEDS: MethylPREDNISolone Sod Succinate Inj 40 MG/ML Vial IV.PUSH SCH ×2 (14:13→21:54)
--- NOTE | 2018-03-13 15:24 | US ---
EXAM DATE: 03/13/2018 12:00 AM EDT AGE/SEX: 72 years / Female INDICATIONS: Kidney failure. CLINICAL DATA: This is the patient's initial encounter. Patient reports that signs and symptoms have been present for 1 day and indicates a pain score of 0/10. MEDICAL/SURGICAL HISTORY: . Breast cancer. Cholecystectomy. Mastectomy, right. Partial remova l of lung. COMPARISON: No prior exams available for comparison. MEASUREMENTS: Right Kidney:__10.7 x 4.9 x 5.1 cm Left Kidney:__10.5 x x 5.7 cm FINDINGS: Right Kidney: Normal echotexture and cortical thickness. No mass or hydronephrosis. Left Kidney: The examination demonstrates a 2.6 x 2.2 cm simple cyst in the lower pole. There is no h ydronephrosis. No mass is seen in the cortex is normal in thickness. Bladder: The anterior bladder wall appears thickened. The bladder is partially decompressed. No discr ete mass is seen. Cystoscopy may be of benefit for further assessment. Other: None. CONCLUSION: 1. Small cortical cyst in the left kidney. 2. Mild thickening of the anterior aspect of the bladder wall. Cystoscopy may be of benefit for furt her assessment.. Electronically signed by: Edy Mayberry MD 03/13/2018 3:23 PM EDT
--- NOTE | 2018-03-13 15:29 | MB ---
cc: Kanu Coronado MD DATE: 03/13/2018 REASON FOR CONSULTATION: New onset CHF. HISTORY OF PRESENT ILLNESS: The patient is a very pleasant 72-year-old woman with no significant cardiac history except for obesity and hyperlipidemia. She does note a history of breast cancer, status post radiation treatment several years ago. The patient had been doing well except for the last couple of weeks, she has been having more of an annoying cough intermittently and during coughing , she did feel somewhat short of breath. However, she generally was still doing alright until yesterday evening where she fairly acutely became severely short of breath and presyncopal and ended up having to present to the emergency department in respiratory distress. She was ruled out for pulmonary embolism by CT scan, although it was a somewhat limited study. She was given Lasix and now she says she feels much better with no residual shortness of breath or lightheadedness. No chest pain. PAST MEDICAL HISTORY: As above. CURRENT MEDICATIONS: 1. Tylenol. 2. DuoNebs. ALLERGIES: PENICILLIN, MOXIFLOXACIN, NAPROXEN, SULFA. PHYSICAL EXAMINATION: VITAL SIGNS: Afebrile, pulse 116, respiratory rate 19, BP 146/84, saturating 94%. GENERAL: Pleasant, obese woman in no distress. NECK: No JVD. LUNGS: Clear to auscultation bilaterally. CARDIOVASCULAR: Tachycardic, regular. No significant murmurs appreciated. ABDOMEN: Benign. EXTREMITIES: Trace edema bilaterally. LABORATORY DATA: White count 17.7, up from 15.5, hematocrit 51.5, platelets 188. D-dimer is 5.88. INR is 1.1. Sodium 141, potassium 3.5, chloride 104, bicarbonate 25, BUN 18, creatinine 1.4, glucose 180. EKG shows sinus tachycardia with fairly diffuse ST changes. CT scan shows mildly degraded by motion artifact, but no PE is identified, severe ground glass opacity and consolidations bilaterally consistent with pulmonary edema or other inflammatory process. Troponin 0.17 and BNP is 397. IMPRESSION: 1. Shortness of breath. 2. Congestive heart failure seems a reasonable explanation, but not everything fits perfectly. Her BNP is only mildly elevated, though this can be seen in obese patients. Her troponin is slightly elevated, which is consistent with congestive heart failure. Strangely her hematocrit is elevated, which sometimes can be seen in dehydration. Nonetheless, I do think proceeding as if this is congestive heart failure is reasonable, and she is already feeling better with diuresis. We would continue this and obtain an echocardiogram to get a sense of her systolic function. She has plenty of blood pressure , so I will treat her with losartan and carvedilol. Should her left ventricle shows significant dysfunction, we would likely change her losartan to Entresto. I do think it is reasonable to have her undergo a nuclear stress test tomorrow given abnormal EKG and slightly elevated troponin. Further recommendations based on the above. Thank you again for the opportunity to participate in this patient's care. MD SHARRON Mackenzie/joel/aidee , 01:42 PM , 01:50 PM
--- NOTE | 2018-03-13 16:35 | MB ---
cc: Agapito Giron MD DATE: 03/13/2018 REQUESTING PHYSICIAN: Amanda Ty MD REASON FOR CONSULTATION: Shortness of breath and lung infiltrate. HISTORY OF PRESENT ILLNESS: Ms. Wang is a pleasant 72-year-old white female who lives for 4 months in this area and rest of the time she is in [place] and most of her medical care she gets in [place]. She has a history of CA of the breast, status post right mastectomy followed by radiation treatment years ago. Also, history of right middle lobe lung lobectomy, two-thirds of the lung was removed, concerning for Hodgkin's turned out to be histoplasmosis. She used to live in [place] and then [place]. She came to the hospital with sudden onset of shortness of breath. She was talking to her , went to the bathroom, after that she was short of breath and she started pacing in the room, considering that she was having some panic attack, and then she laid down on the bed, she passed out, and her noticed that she was having frothing from her mouth. She did not have any thrashing of the limbs. No loss of bladder or bowel control. Prior to this, the patient did not complain of any chest pain. No palpitation. EVAC was called and the patient was intubated while she came to the hospital. She was very agitated. Her oxygenation has improved and she was extubated. Now, she is weaned down to nasal cannula. She denies any prior history of any shortness of breath. Normally, she is up, around and active. He does not have any history of any asthma, emphysema, no hypertension, no coronary artery disease. She does have off and on palpitations. She does admit to a dry cough over the last 1-2 weeks, did not have any fever. One of her grandchild was sick. She does not have any pets. The patient was evaluated in the hospital. She had a CT of the chest done. It does not show any pulmonary embolism; however, it showed that she has ground glass opacities bilaterally and small pleural effusion. Blood gas showed pH 7.29, pCO2 of 46, pO2 155 on nonrebreather mask. Now, she is weaned down to nasal cannula. WBC count is 17.7, hemoglobin 16.6, hematocrit 51.5, MCV 80, platelet count 188. Sodium 140, potassium 3.4, chloride 104, CO2 25, BUN 18, creatinine 1.40, glucose 180. Troponin 0.17. BNP 397. INR is 1.1. D-dimer 5.88. PAST MEDICAL HISTORY: Significant history of resection of the right lung for histoplasmosis, CA of the breast, status post right mastectomy followed by radiation treatment. History of hysterectomy, appendectomy, tonsillectomy. MEDICATIONS: She is currently takin. Albuterol and Atrovent nebulizer treatment. 2. Zithromax 500 mg a day. 3. Aztreonam 2 grams every 8 hours. 4. Famotidine 10 mg twice a day. 5. Lasix 20 mg IV push. 6. MagOx. 7. Potassium supplement. ALLERGIES: PENICILLIN, MOXIFLOXACIN, NAPROSYN, SULFA. SOCIAL HISTORY: She is . 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 No history of smoking. Drinks occasionally. FAMILY HISTORY: She has grown children. REVIEW OF SYSTEMS: Normally she is up, around and active. Weight is stable. No coronary artery disease. No asthma, emphysema or liver or gallbladder problem. Weight is stable. PHYSICAL EXAMINATION: GENERAL: Well-nourished, not in acute distress. VITAL SIGNS: Blood pressure 146/86, heart rate 160, respirations 18, temperature 98. HEENT: Pupils are equal and reactive. Nasal mucosa normal. NECK: Supple. JVD not raised. CHEST: Quiet. She has scattered rales. HEART: S1, S2 normal. ABDOMEN: Benign. EXTREMITIES: No edema. IMPRESSION: 1. Bilateral patchy infiltrates with ground glass appearance, possible inflammatory process. Bacterial pneumonia is not ruled out. 2. Shortness of breath, significantly improved. 3. Possible atypical pulmonary edema. 4. Hypertension. PLAN: 1. Her cardiac workup is underway. 2. Supplement her oxygen. 3. I will check a pulmonary function study. 4. Start on IV SOLU-Medrol 40 mg every 6 hours. 5. Check sedimentation rate, RAUL, and rheumatoid factor. 6. Further treatment pending the course in the hospital. Thank you, Dr. Amanda Ty, for this consult. Agapito Giron MD ADA/iliana , 01:52 PM , 02:05 PM
--- NOTE | 2018-03-13 17:05 | ECHRPT ---
Indication: SHORTNESS OF BREATH CONCLUSIONS The left ventricular systolic function is normal with an estimated ejection fraction in the range of 60-65%. Normal left ventricular size. Wall thickness is normal. No regional wall motion abnormalities are present. Mild thickening of the mitral valve leaflets. Moderate mitral valve regurgitation. The pulmonary valve is not well visualized. Technically difficult study BP: / HR: Rhythm: MEASUREMENTS (Male / Female) Normal Values Technical Quality:Technically difficult study 2D ECHO LV Ejection Fraction MOD 4C 67.2 % LV Ejection Fraction 4C AL 69.1 % M-MODE Aortic Root Diameter MM 2.5 cm LA Systolic Diameter MM 3.5 cm LA Ao Ratio MM 1.4 AV Cusp Separation MM 2.1 cm DOPPLER AV Peak Velocity 136.0 cm/s AV Peak Gradient 7.4 mmHg LVOT Peak Velocity 103.0 cm/s LVOT Peak Gradient 4.2 mmHg MV Area PHT 5.4 cm Mitral E Point Velocity 104.0 cm/s Mitral A Point Velocity 102.0 cm/s Mitral E to A Ratio 1.0 LV E' Lateral Velocity 6.5 cm/s Mitral E to LV E' Lateral Ratio 15.9 LV E' Septal Velocity 5.8 cm/s Mitral E to LV E' Septal Ratio 18.1 PV Peak Velocity 80.1 cm/s PV Peak Gradient 2.6 mmHg FINDINGS LEFT VENTRICLE The left ventricular systolic function is normal with an estimated ejection fraction in the range of 60-65%. Normal left ventricular size. Wall thickness is normal. No regional wall motion abnormalities are present. RIGHT VENTRICLE Normal right ventricular size and systolic function. LEFT ATRIUM The left atrial size is normal. RIGHT ATRIUM The right atrial size is normal. ATRIAL SEPTUM Normal atrial septal thickness without atrial level shunting by limited color doppler interrogation. AORTA The aortic root and proximal ascending aorta are normal in size on limited imaging. MITRAL VALVE Mild thickening of the mitral valve leaflets. Moderate mitral valve regurgitation. AORTIC VALVE Trileaflet aortic valve. No aortic valve stenosis or regurgitation. TRICUSPID VALVE Structurally normal tricuspid valve. No tricuspid valve stenosis or regurgitation. PULMONARY VALVE The pulmonary valve is not well visualized. VESSELS The inferior vena cava is normal in size. PERICARDIUM No pericardial effusion. Kanu Coronado MD (Electronically Signed) Final Date:13 March 2018 17:04
[2018-03-13] MEDS: Metoprolol Tartrate 25 MG Tablet PO SCH (21:54)
[2018-03-14] MEDS: MethylPREDNISolone Sod Succinate Inj 40 MG/ML Vial IV.PUSH SCH ×4 (02:22→21:16)
[2018-03-14 04:56] LABS: Baso # (Auto) 0.1 th/mm3 (0.0-0.2); Eos % (Auto) 0.1 % (0.0-4.0); Hematocrit 45.2 % (35.0-46.0); Hemoglobin 14.8 gm/dL (11.6-15.3); Lymph # (Auto) 0.7 th/mm3 (1.0-4.8); Mean Corpuscular HGB Conc 32.9 % (32.0-36.0); Mean Corpuscular Hemoglobin 27.8 pg (27.0-34.0); Mean Corpuscular Volume 84.4 fL (80.0-100.0); Mean Platelet Volume 9.5 fL (7.0-11.0); Mono # (Auto) 0.1 th/mm3 (0.0-0.9); Mono % (Auto) 0.7 % (0.0-8.0); Neut # (Auto) 13.3 th/mm3 (1.8-7.7); Neut % (Auto) 93.2 % (16.0-70.0); Platelet Count 179 th/mm3 (150-450); Red Blood Count 5.35 mil/mm3 (4.00-5.30); Red Cell Distribution Width 14.8 % (11.6-17.2); White Blood Count 14.2 th/mm3 (4.0-11.0)
[2018-03-14 05:06] LABS: Chloride 105 meq/L (98-107); Potassium 3.6 meq/L (3.5-5.1); Sodium 141 meq/L (136-145)
[2018-03-14 05:11] LABS: Calcium 8.2 mg/dL (8.5-10.1)
[2018-03-14 05:12] LABS: Albumin 2.9 g/dL (3.4-5.0); Anion Gap 10 meq/L (5-15); Blood Urea Nitrogen 21 mg/dL (7-18); Carbon Dioxide 25.9 meq/L (21.0-32.0); Glucose,Random 151 mg/dL (74-106); Magnesium 2.3 mg/dL (1.5-2.5)
[2018-03-14 05:15] LABS: Alanine Aminotransferase 32 U/L (10-53); Aspartate Aminotransferase 23 U/L (15-37); Glomerular Filtration Rate 49 mL/min (>89)
[2018-03-14 05:17] LABS: Total Protein 6.9 g/dL (6.4-8.2)
[2018-03-14 05:18] LABS: Alkaline Phosphatase 103 U/L (45-117)
[2018-03-14] MEDS: Chlorhexidine Gluconate 2% 1 Pack (2 Cloths) TOPICAL SCH (05:32)
--- NOTE | 2018-03-14 05:55 | XR ---
EXAM DATE: 03/14/2018 2:45 AM EDT AGE/SEX: 72 years / Female INDICATIONS: Shortness of breath. CLINICAL DATA: This is the patient's subsequent encounter. Patient reports that signs and symptoms h ave been present for 2 days and indicates a pain score of 0/10. MEDICAL/SURGICAL HISTORY: Carcinoma, breast. Mastectomy, right. Partial removal of right lung. COMPARISON: [facility], CHEST 2V PA&LAT, 03/13/2018. . FINDINGS: Improved aeration in the right lower lung zone. Improved interstitial prominence. Persistent granulom a in the right lung base. Cardiomediastinal contours are stable. Remainder of exam is unchanged. CONCLUSION: 1. Improved pleural-parenchymal disease in the right lower lung zone. 2. Improved positive fluid balance. Electronically signed by: Jose Griffith MD 03/14/2018 5:54 AM EDT
[2018-03-14] MEDS: Famotidine 20 MG Tablet PO SCH ×2 (08:25→21:15)
[2018-03-14] MEDS: Metoprolol Tartrate 25 MG Tablet PO SCH ×2 (08:25→21:16)
[2018-03-14] MEDS: Azithromycin Inj 500 MG in Sodium Chlor 0.9% Inj 250 ML IV.SIG SCH (08:26)
[2018-03-14] MEDS: Aztreonam Inj 2 GM in Sodium Chloride 0.9% Inj 100 ML IV.SIG SCH ×3 (08:26→23:31)
[2018-03-14] MEDS: Senna/Docusate Sodium 8.6/50 MG Tablet PO SCH ×2 (10:23→21:15)
--- NOTE | 2018-03-14 11:44 | P.PNIM ---
Subjective Interval history: Respiratory status is improving. Echocardiogram shows no evidence of systolic or diastolic CHF. Renal ultrasound shows no kidney disease evidence other than a left-sided cyst. Patient's renal function is improving and etiology for acute kidney injury likely related to her decompensation appears to be possibly flash pulmonary edema secondary to pneumonia. She is predisposed to this secondary to scar tissue from radiation related to breast cancer and mastectomy. Additionally she has a history of histoplasmosis and left-sided partial lung lobectomy. Physical Exam Vital signs: Vital Signs 03/13/18 12:00 03/13/18 12:02 03/13/18 13:00 Temperature 95 F L Pulse Rate 104 H 104 H 118 H Respiratory Rate 24 25 H 22 Blood Pressure 148/75 H Pulse Oximetry 94 L 94 L 94 L 03/13/18 13:02 03/13/18 14:00 03/13/18 14:02 Temperature Pulse Rate 116 H 102 H 104 H Respiratory Rate 19 21 26 H Blood Pressure 146/84 H 155/79 H Pulse Oximetry 94 L 93 L 94 L 03/13/18 15:00 03/13/18 15:02 03/13/18 15:36 Temperature Pulse Rate 104 H 102 H 101 H Respiratory Rate 22 24 18 Blood Pressure 133/74 Pulse Oximetry 93 L 94 L 03/13/18 16:00 03/13/18 16:02 03/13/18 16:04 Temperature 98.2 F Pulse Rate 110 H 110 H 110 H Respiratory Rate 22 19 25 H Blood Pressure 133/68 145/67 H Pulse Oximetry 92 L 93 L 92 L 03/13/18 17:00 03/13/18 17:02 03/13/18 18:00 Temperature Pulse Rate 106 H 108 H 110 H Respiratory Rate 27 H 30 H 24 Blood Pressure 135/71 Pulse Oximetry 91 L 90 L 93 L 03/13/18 18:02 03/13/18 19:02 03/13/18 20:02 Temperature 97.9 F Pulse Rate 110 H 106 H 104 H Respiratory Rate 19 24 39 H Blood Pressure 155/85 H 134/81 145/79 H Pulse Oximetry 92 L 92 L 92 L 03/13/18 21:02 03/13/18 21:09 03/13/18 22:02 Temperature Pulse Rate 104 H 107 H 118 H Respiratory Rate 32 H 20 32 H Blood Pressure 149/71 H 148/68 H Pulse Oximetry 92 L 93 L 92 L 03/13/18 23:02 03/14/18 00:02 03/14/18 01:02 Temperature 98.4 F Pulse Rate 106 H 94 H 92 H Respiratory Rate 23 24 27 H Blood Pressure 135/70 135/65 134/72 Pulse Oximetry 94 L 91 L 94 L 03/14/18 02:02 03/14/18 03:02 03/14/18 04:02 Temperature 98.5 F Pulse Rate 80 84 78 Respiratory Rate 20 21 19 Blood Pressure 128/73 142/74 H 143/74 H Pulse Oximetry 89 L 91 L 91 L 03/14/18 04:40 03/14/18 05:02 03/14/18 06:02 Temperature Pulse Rate 93 H 100 H 104 H Respiratory Rate 20 25 H 22 Blood Pressure 150/80 H 140/81 Pulse Oximetry 93 L 92 L 03/14/18 07:02 03/14/18 08:00 03/14/18 08:02 Temperature 98 F Pulse Rate 104 H 98 H 100 H Respiratory Rate 20 14 15 Blood Pressure 136/72 137/65 Pulse Oximetry 90 L 91 L 92 L 03/14/18 09:00 03/14/18 09:02 03/14/18 09:14 Temperature Pulse Rate 108 H 110 H Respiratory Rate 24 33 H Blood Pressure 160/84 H Pulse Oximetry 93 L 94 L 98 03/14/18 10:00 Temperature Pulse Rate 94 H Respiratory Rate 37 H Blood Pressure Pulse Oximetry 94 L Intake & Output 03/13/18 03/14/18 03/14/18 18:59 06:59 18:59 Intake Total 1540 / 1540 100 / 100 350 / 350 Output Total 2900 / 2900 1400 / 1400 400 / 400 Balance -1360 / -1360 -1300 / -1300 -50 / -50 Weight 123.6 kg Intake: IV 700 / 700 100 / 100 350 / 350 Azithromycin Inj 500 MG In NS 250 / 250 250 / 250 Inj 250 ML @ 250 mls/hr IV.SIG Q24H PEDRITO Rx#:[id number] Azactam Inj 2 GM In NS Inj 100 200 / 200 100 / 100 100 / 100 ML @ 200 mls/hr IV.SIG Q8H PEDRITO Rx#:[id number] Vancomycin Inj 1,000 MG In NS 250 / 250 Inj 250 ML @ 250 mls/hr IV.SIG ONCE ONE Rx#:[id number] Oral 840 / 840 Output: Urine 2900 / 2900 1400 / 1400 400 / 400 Other: Post Void Residual 4 400 Date of Last Bowel Movement 03/12/18 03/12/18 03/12/18 # Bowel Movements 1 1 Narrative: GENERAL: NAD, A&Ox3 HEAD: Normocephalic. NECK: Supple, trachea midline. No lymphadenopathy. EYES: No scleral icterus. No injection or drainage. CARDIOVASCULAR: Regular rate and rhythm without murmurs, gallops, or rubs. RESPIRATORY: Breath sounds equal bilaterally. No accessory muscle use. GASTROINTESTINAL: Abdomen soft, non-tender, nondistended. MUSCULOSKELETAL: No cyanosis, or edema. SKIN: Warm and dry. NEURO: No focal neurological deficits. Results - Labs CBC & Chem 7: 03/14/18 04:33 03/14/18 04:33 Laboratory Results - last 24 hr 03/13/18 03/13/18 03/13/18 13:12 13:12 13:12 CBC w Diff WBC RBC Hgb Hct MCV MCH MCHC RDW Plt Count MPV Neut % (Auto) Lymph % (Auto) [place] % (Auto) Eos % (Auto) Baso % (Auto) Neut # (Auto) Lymph # (Auto) [place] # (Auto) Eos # (Auto) Baso # (Auto) WBC Differential Differential Comment ESR Sodium 141 Potassium 3.5 Chloride 104 Carbon Dioxide 25.0 Anion Gap 12 BUN 18 Creatinine 1.40 H Estimated GFR 37 L POC Glucose Random Glucose 180 H Calcium 7.8 L Magnesium Total Bilirubin 1.0 AST 30 ALT 35 Alkaline Phosphatase 113 Troponin I 0.12 H Total Protein 6.7 D Albumin 3.1 L Rheumatoid Factor Scrn Negative Rheumatoid Factor Titer Not Reportable 03/13/18 03/13/18 03/14/18 16:45 22:40 04:33 CBC w Diff WBC RBC Hgb Hct MCV MCH MCHC RDW Plt Count MPV Neut % (Auto) Lymph % (Auto) [place] % (Auto) Eos % (Auto) Baso % (Auto) Neut # (Auto) Lymph # (Auto) [place] # (Auto) Eos # (Auto) Baso # (Auto) WBC Differential Differential Comment ESR 1 Sodium 141 Potassium 3.6 Chloride 105 Carbon Dioxide 25.9 Anion Gap 10 BUN 21 H Creatinine 1.10 H Estimated GFR 49 L POC Glucose 166 H Random Glucose 151 H Calcium 8.2 L Magnesium 2.3 Total Bilirubin 0.9 AST 23 ALT 32 Alkaline Phosphatase 103 Troponin I Total Protein 6.9 Albumin 2.9 L Rheumatoid Factor Scrn Rheumatoid Factor Titer 03/14/18 04:33 CBC w Diff Auto diff final WBC 14.2 H RBC 5.35 H Hgb 14.8 Hct 45.2 MCV 84.4 MCH 27.8 MCHC 32.9 RDW 14.8 Plt Count 179 MPV 9.5 Neut % (Auto) 93.2 H Lymph % (Auto) 5.0 L [place] % (Auto) 0.7 Eos % (Auto) 0.1 Baso % (Auto) 1.0 Neut # (Auto) 13.3 H Lymph # (Auto) 0.7 L [place] # (Auto) 0.1 Eos # (Auto) 0.0 Baso # (Auto) 0.1 WBC Differential . Differential Comment . ESR Sodium Potassium Chloride Carbon Dioxide Anion Gap BUN Creatinine Estimated GFR POC Glucose Random Glucose Calcium Magnesium Total Bilirubin AST ALT Alkaline Phosphatase Troponin I Total Protein Albumin Rheumatoid Factor Scrn Rheumatoid Factor Titer Microbiology 03/13/18 13:12 Blood - Peripheral Aerobic Blood Culture - Preliminary No growth in 1 day 03/13/18 13:12 Blood - Peripheral Anaerobic Blood Culture - Preliminary No growth in 1 day 03/13/18 13:00 Blood - Peripheral Aerobic Blood Culture - Preliminary No growth in 1 day 03/13/18 13:00 Blood - Peripheral Anaerobic Blood Culture - Preliminary No growth in 1 day 03/13/18 12:48 Urine - Clean Catch Urine Streptococcus pneumoniae Antigen ( M - Final Presumptive negative for streptococcus pneumoniae antigen, suggesting no current or recent infection. Infection due to Streptococcus pneumoniae cannot be ruled out since the antigen present in the sample may be below the detection limit of the test. 03/13/18 12:48 Urine - Clean Catch Urine Legionella Antigen - Final Presumptive negative for Legionella pneumophila serogroup 1 antigen in urine, suggesting no recent or recurrent infection. Infection due to Legionella cannot be ruled out since other serogroups and species may cause disease, antigen may not be present in urine in early infection, and the level of antigen present in the urine may be below the detection limit of the test. 03/13/18 07:40 Nasal Wash Influenza Types A,B Antigen - Final Negative for FLU A and B antigen Infection due to influenza A or B cannot be ruled out since the antigen present in the sample may be below the detection limit of the test. - Imaging Impressions Abdomen/Bladder Ultrasound 03/13/18 00:00 CONCLUSION: 1. Small cortical cyst in the left kidney. 2. Mild thickening of the anterior aspect of the bladder wall. Cystoscopy may be of benefit for further assessment.. Chest X-Ray 03/14/18 02:45 CONCLUSION: 1. Improved pleural-parenchymal disease in the right lower lung zone. 2. Improved positive fluid balance. Assessment and Plan - Assessment (1) Acute hypoxemic respiratory failure Code(s): J96.01 - Status: Acute (2) Pulmonary edema Code(s): J81.1 - Status: Acute (3) Pneumonia Code(s): J18.9 - Status: Acute (4) Sepsis Code(s): A41.9 - Status: Acute (5) History of lobectomy of lung Code(s): Z90.2 - Status: Chronic (6) H/O right mastectomy Code(s): Z90.11 - Status: Chronic (7) History of breast cancer Code(s): Z85.3 - Status: Chronic (8) History of histoplasmosis Code(s): Z86.19 - Status: Resolved (9) Acute kidney insufficiency Code(s): N28.9 - Status: Acute - Plan 72-year-old female admitted secondary to acute respiratory failure Flash pulmonary edema (resolved) acute hypoxemic respiratory failure Probable pneumonia/atypical Elevated d-dimer (no PE) No evidence of CHF on echocardiogram Continue oxygen supplementation as needed Clinically patient is diuresing prior edema and clinically patient is improving Stable for transfer out of ICU Continue scheduled DuoNeb's Continue Rocephin, azithromycin, and vancomycin Negative CTA Pulmonology following Wean oxygen as tolerated Acute kidney insufficiency Clinically improving Likely related to strain and decreased urine output from third spacing Renal ultrasound shows a renal cyst but no acute findings of concern Continue to monitor renal function Sepsis Resolved History of breast cancer History of histoplasmosis History of right lower lobectomy Scarring of lung tissue could be contributory to predisposition and degree of pulmonary edema Hyperglycemia Follow blood sugars Insulin sliding scale Diabetic diet DVT prophylaxis Lovenox
--- NOTE | 2018-03-14 16:11 | ECG ---
Date Performed: 03/13/2018 Time Performed: 15:00:22 PTAGE: 72 years EKG: SINUS TACHYCARDIA ST DEVIATION AND MODERATE T-WAVE ABNORMALITY, CONSIDER LATERAL ISCHEMIA A BNORMAL ECG WARNING: DATA QUALITY MAY AFFECT INTERPRETATION PREVIOUS TRACING : 03/13/2018 06.18 Since the previous tracing, no significant change not ed DOCTOR: Mike Bruce Interpretating Date/Time 03/14/2018 16:09:34
--- NOTE | 2018-03-14 18:32 | P.PNPL ---
Subjective Interval history: 72 YOWF with Bilat patchy infilt, sob Diureased 4Lit Breathing much better. PFT normal Physical Exam Vital signs: Vital Signs 03/13/18 19:02 03/13/18 20:02 03/13/18 21:02 Temperature 97.9 F Pulse Rate 106 H 104 H 104 H Respiratory Rate 24 39 H 32 H Blood Pressure 134/81 145/79 H 149/71 H Pulse Oximetry 92 L 92 L 92 L 03/13/18 21:09 03/13/18 22:02 03/13/18 23:02 Temperature Pulse Rate 107 H 118 H 106 H Respiratory Rate 20 32 H 23 Blood Pressure 148/68 H 135/70 Pulse Oximetry 93 L 92 L 94 L 03/14/18 00:02 03/14/18 01:02 03/14/18 02:02 Temperature 98.4 F Pulse Rate 94 H 92 H 80 Respiratory Rate 24 27 H 20 Blood Pressure 135/65 134/72 128/73 Pulse Oximetry 91 L 94 L 89 L 03/14/18 03:02 03/14/18 04:02 03/14/18 04:40 Temperature 98.5 F Pulse Rate 84 78 93 H Respiratory Rate 21 19 20 Blood Pressure 142/74 H 143/74 H Pulse Oximetry 91 L 91 L 03/14/18 05:02 03/14/18 06:02 03/14/18 07:02 Temperature Pulse Rate 100 H 104 H 104 H Respiratory Rate 25 H 22 20 Blood Pressure 150/80 H 140/81 136/72 Pulse Oximetry 93 L 92 L 90 L 03/14/18 08:00 03/14/18 08:02 03/14/18 09:00 Temperature 98 F Pulse Rate 98 H 100 H 102 H Respiratory Rate 14 15 24 Blood Pressure 137/65 Pulse Oximetry 91 L 92 L 93 L 03/14/18 09:02 03/14/18 09:14 03/14/18 10:00 Temperature Pulse Rate 110 H 94 H Respiratory Rate 33 H 37 H Blood Pressure 160/84 H Pulse Oximetry 94 L 98 94 L 03/14/18 11:00 03/14/18 12:00 03/14/18 13:43 Temperature Pulse Rate 100 H 102 H 108 H Respiratory Rate 35 H 34 H 57 H Blood Pressure 136/72 148/68 H Pulse Oximetry 96 95 96 03/14/18 13:44 03/14/18 13:51 03/14/18 14:02 Temperature Pulse Rate 110 H 108 H 110 H Respiratory Rate 39 H 33 H 34 H Blood Pressure 162/68 H 153/75 H 160/91 H Pulse Oximetry 96 97 03/14/18 14:06 03/14/18 15:00 03/14/18 16:00 Temperature Pulse Rate 104 H 100 H 102 H Respiratory Rate 28 H 29 H 16 Blood Pressure 151/76 H Pulse Oximetry 97 97 97 03/14/18 17:00 03/14/18 18:00 Temperature 98.2 F Pulse Rate 110 H 112 H Respiratory Rate 22 19 Blood Pressure Pulse Oximetry 95 94 L Intake & Output 03/13/18 03/14/18 03/14/18 18:59 06:59 18:59 Intake Total 1540 / 1540 100 / 100 1330 / 1330 Output Total 2900 / 2900 1400 / 1400 1000 / 1000 Balance -1360 / -1360 -1300 / -1300 330 / 330 Weight 123.6 kg Intake: IV 700 / 700 100 / 100 450 / 450 Azithromycin Inj 500 MG In NS 250 / 250 250 / 250 Inj 250 ML @ 250 mls/hr IV.SIG Q24H PEDRITO Rx#:[id number] Azactam Inj 2 GM In NS Inj 100 200 / 200 100 / 100 200 / 200 ML @ 200 mls/hr IV.SIG Q8H PEDRITO Rx#:[id number] Vancomycin Inj 1,000 MG In NS 250 / 250 Inj 250 ML @ 250 mls/hr IV.SIG ONCE ONE Rx#:[id number] Oral 840 / 840 880 / 880 Output: Urine 2900 / 2900 1400 / 1400 1000 / 1000 Other: Post Void Residual 4 400 Date of Last Bowel Movement 03/12/18 03/12/18 03/14/18 # Bowel Movements 1 1 GENERAL: WBWN NAD SKIN: Warm and dry. HEAD: Normocephalic. EYES: No scleral icterus. No injection or drainage. NECK: Supple, trachea midline. No JVD or lymphadenopathy. CARDIOVASCULAR: Regular rate and rhythm without murmurs, gallops, or rubs. RESPIRATORY: Breath sounds equal bilaterally. No accessory muscle use. GASTROINTESTINAL: Abdomen soft, non-tender, nondistended. MUSCULOSKELETAL: No cyanosis, or edema. BACK: Nontender without obvious deformity. No CVA tenderness. Assessment and Plan - Plan IMPRESSION: 1. Bilateral patchy infiltrates with ground glass appearance, possible inflammatory process. Bacterial pneumonia is not ruled out. 2. Shortness of breath, significantly improved. 3. Possible atypical pulmonary edema. 4. Hypertension. PLAN: Cont Abx IV Solumedrol Diurease with Lasix Supplement 02 monitor Alex DW pt and her at BS
[2018-03-15] MEDS: MethylPREDNISolone Sod Succinate Inj 40 MG/ML Vial IV.PUSH SCH ×3 (01:07→15:42)
[2018-03-15 05:00] LABS: Baso # (Auto) 0.6 th/mm3 (0.0-0.2); Baso % (Auto) 2.7 % (0.0-2.0); Eos % (Auto) 0.1 % (0.0-4.0); Hematocrit 45.2 % (35.0-46.0); Hemoglobin 14.9 gm/dL (11.6-15.3); Lymph # (Auto) 1.9 th/mm3 (1.0-4.8); Lymph % (Auto) 8.7 % (9.0-44.0); Mean Corpuscular HGB Conc 32.8 % (32.0-36.0); Mean Corpuscular Volume 85.3 fL (80.0-100.0); Mean Platelet Volume 9.4 fL (7.0-11.0); Mono # (Auto) 0.4 th/mm3 (0.0-0.9); Mono % (Auto) 1.7 % (0.0-8.0); Neut # (Auto) 18.6 th/mm3 (1.8-7.7); Neut % (Auto) 86.8 % (16.0-70.0); Platelet Count 167 th/mm3 (150-450); Red Cell Distribution Width 14.8 % (11.6-17.2); White Blood Count 21.5 th/mm3 (4.0-11.0)
[2018-03-15 05:09] LABS: Chloride 105 meq/L (98-107); Potassium 3.8 meq/L (3.5-5.1); Sodium 141 meq/L (136-145)
[2018-03-15 05:15] LABS: Albumin 2.9 g/dL (3.4-5.0); Anion Gap 9 meq/L (5-15); Calcium 8.4 mg/dL (8.5-10.1); Carbon Dioxide 27.2 meq/L (21.0-32.0); Glucose,Random 145 mg/dL (74-106)
[2018-03-15 05:16] LABS: Blood Urea Nitrogen 30 mg/dL (7-18)
[2018-03-15 05:19] LABS: Aspartate Aminotransferase 22 U/L (15-37); Glomerular Filtration Rate 44 mL/min (>89)
[2018-03-15 05:20] LABS: Total Protein 6.6 g/dL (6.4-8.2)
[2018-03-15 05:22] LABS: Alanine Aminotransferase 28 U/L (10-53); Alkaline Phosphatase 97 U/L (45-117)
[2018-03-15] MEDS: Chlorhexidine Gluconate 2% 1 Pack (2 Cloths) TOPICAL SCH (06:43)
[2018-03-15] MEDS: Metoprolol Tartrate 25 MG Tablet PO SCH (08:04)
[2018-03-15] MEDS: Famotidine 20 MG Tablet PO SCH (08:04)
[2018-03-15] MEDS: Senna/Docusate Sodium 8.6/50 MG Tablet PO SCH (08:04)
[2018-03-15] MEDS: Aztreonam Inj 2 GM in Sodium Chloride 0.9% Inj 100 ML IV.SIG SCH ×2 (08:06→15:42)
[2018-03-15] MEDS: Azithromycin Inj 500 MG in Sodium Chlor 0.9% Inj 250 ML IV.SIG SCH (08:06)
[2018-03-15] MEDS ORDERED: Furosemide 20 MG Tablet PO SCH (09:00)
[2018-03-15] MEDS ORDERED: Regadenoson Inj 0.4 MG/5 ML Syringe IV.PUSH ONE (09:29)
--- NOTE | 2018-03-15 09:43 | NM ---
EXAM DATE: 03/14/2018 12:01 PM EDT AGE/SEX: 72 years / Female INDICATIONS:Angina. . Shortness of breath for one day. CLINICAL DATA: This is the patient's initial encounter. Patient reports that signs and symptoms have been present for 1 day and indicates a pain score of 1/10. MEDICAL/SURGICAL HISTORY: Carcinoma, breast. Cholecystectomy. Mastectomy, right. COMPARISON: No prior exams available for comparison. No external comparison. DOSE: 30.0 mCi Tc 99m Myoview at rest 30.2 mCi [id number] at stress 0.4 mg Lexiscan STRESS SYMPTOMS: None. EJECTION FRACTION: 29 % TECHNIQUE: The patient underwent pharmacologic stress with infusion of prescribed dose. Continuous ECG tracing was monitored during stress. Gated SPECT imaging was performed after stress and conventi onal SPECT imaging was performed at rest. The examination was performed on a SPECT/CT scanner, both attenuation and non-corrected datasets were reviewed. FINDINGS: Distribution: The maximum perfused segment at stress is in the septal wall. Perfusion Study: There is a small partially reversible defect involving the anterior septal wall. T here is a small reversible apical defect as well. Gated Study: Diffuse global hypokinesis greatest involving the septal wall. The ejection fraction i s calculated at 29%. RISK CATEGORY: Intermediate (1-3 % Annual Mortality Rate) CONCLUSION: 1. Diffuse global hypokinesis greatest involving the septal wall. There is a markedly decreased N ej ection fraction of 29%. 2. Small partially reversible perfusion defects involving the anteroseptal wall and apex. This could indicate areas of ischemia. Electronically signed by: Soren Mccarty MD 03/15/2018 9:42 AM EDT
[2018-03-15 11:08] VITALS: O2SAT 98
--- NOTE | 2018-03-15 11:26 | P.PNPL ---
Subjective Interval history: 72 YOWF with Bilat patchy infilt, sob Diureased Breathing much better. PFT normal. Weaned to RA Physical Exam Vital signs: Vital Signs 03/14/18 12:00 03/14/18 13:43 03/14/18 13:44 Temperature Pulse Rate 102 H 108 H 110 H Respiratory Rate 34 H 57 H 39 H Blood Pressure 148/68 H 162/68 H Pulse Oximetry 95 96 96 Pulse Oximetry [Exertion on Room Air] Pulse Oximetry [Resting on Room Air] 03/14/18 13:51 03/14/18 14:02 03/14/18 14:06 Temperature Pulse Rate 108 H 110 H 104 H Respiratory Rate 33 H 34 H 28 H Blood Pressure 153/75 H 160/91 H 151/76 H Pulse Oximetry 97 97 Pulse Oximetry [Exertion on Room Air] Pulse Oximetry [Resting on Room Air] 03/14/18 15:00 03/14/18 16:00 03/14/18 17:00 Temperature Pulse Rate 100 H 102 H 110 H Respiratory Rate 29 H 16 22 Blood Pressure Pulse Oximetry 97 97 95 Pulse Oximetry [Exertion on Room Air] Pulse Oximetry [Resting on Room Air] 03/14/18 18:00 03/14/18 19:00 03/14/18 20:00 Temperature 98.2 F 97.8 F Pulse Rate 112 H 120 H 114 H Respiratory Rate 19 41 H 44 H Blood Pressure 132/67 144/75 H Pulse Oximetry 94 L 95 97 Pulse Oximetry [Exertion on Room Air] Pulse Oximetry [Resting on Room Air] 03/14/18 21:02 03/14/18 21:24 03/14/18 22:00 Temperature Pulse Rate 110 H 116 H 118 H Respiratory Rate 48 H 16 25 H Blood Pressure 172/81 H 150/74 H Pulse Oximetry 94 L 95 91 L Pulse Oximetry [Exertion on Room Air] Pulse Oximetry [Resting on Room Air] 03/14/18 23:00 03/14/18 23:31 03/15/18 00:00 Temperature 98.1 F Pulse Rate 110 H 106 H Respiratory Rate 36 H 31 H Blood Pressure 148/70 H 158/74 H 158/74 H Pulse Oximetry 97 96 Pulse Oximetry [Exertion on Room Air] Pulse Oximetry [Resting on Room Air] 03/15/18 01:00 03/15/18 02:00 03/15/18 03:00 Temperature Pulse Rate 98 H 102 H 96 H Respiratory Rate 28 H 26 H 19 Blood Pressure 159/92 H 148/84 H 135/77 Pulse Oximetry 95 89 L 96 Pulse Oximetry [Exertion on Room Air] Pulse Oximetry [Resting on Room Air] 03/15/18 03:02 03/15/18 03:59 03/15/18 04:00 Temperature 97.7 F Pulse Rate 96 H 94 H Respiratory Rate 18 28 H Blood Pressure 142/84 H Pulse Oximetry 97 96 Pulse Oximetry [Exertion on Room Air] Pulse Oximetry [Resting on Room Air] 03/15/18 05:00 03/15/18 06:00 03/15/18 07:00 Temperature Pulse Rate 100 H 84 94 H Respiratory Rate 18 17 10 L Blood Pressure 132/75 118/77 131/74 Pulse Oximetry 93 L 95 97 Pulse Oximetry [Exertion on Room Air] Pulse Oximetry [Resting on Room Air] 03/15/18 08:00 03/15/18 08:41 03/15/18 08:49 Temperature 97.7 F Pulse Rate 104 H 104 H Respiratory Rate 25 H 35 H Blood Pressure 180/94 H 160/80 H Pulse Oximetry 95 99 98 Pulse Oximetry [Exertion on Room Air] Pulse Oximetry [Resting on Room Air] 03/15/18 09:00 03/15/18 10:12 03/15/18 10:13 Temperature Pulse Rate 101 H 101 H Respiratory Rate 15 Blood Pressure Pulse Oximetry Pulse Oximetry [Exertion on Room Air] 98 Pulse Oximetry [Resting on Room Air] 96 Intake & Output 03/14/18 03/15/18 03/15/18 18:59 06:59 18:59 Intake Total 1330 / 1330 100 / 100 350 / 350 Output Total 1000 / 1000 Balance 330 / 330 100 / 100 350 / 350 Weight 121.3 kg Intake: IV 450 / 450 100 / 100 350 / 350 Azithromycin Inj 500 MG In NS 250 / 250 250 / 250 Inj 250 ML @ 250 mls/hr IV.SIG Q24H [facility] Rx#:[id number] Azactam Inj 2 GM In NS Inj 100 200 / 200 100 / 100 100 / 100 ML @ 200 mls/hr IV.SIG Q8H [facility] Rx#:[id number] Oral 880 / 880 0 / 0 Output: Urine 1000 / 1000 Other: # Voids 4 Date of Last Bowel Movement 03/14/18 03/14/18 03/15/18 # Bowel Movements 1 1 GENERAL: SKIN: Warm and dry. HEAD: Normocephalic. EYES: No scleral icterus. No injection or drainage. NECK: Supple, trachea midline. No JVD or lymphadenopathy. CARDIOVASCULAR: Regular rate and rhythm without murmurs, gallops, or rubs. RESPIRATORY: Breath sounds equal bilaterally. No accessory muscle use. GASTROINTESTINAL: Abdomen soft, non-tender, nondistended. MUSCULOSKELETAL: No cyanosis, or edema. BACK: Nontender without obvious deformity. No CVA tenderness.WBWN NAD Assessment and Plan - Plan IMPRESSION: 1. Bilateral patchy infiltrates with ground glass appearance, possible inflammatory process. Bacterial pneumonia is not ruled out. 2. Shortness of breath, significantly improved. 3. Possible atypical pulmonary edema. 4. Hypertension. PLAN: Cont Abx Diurease with Lasix monitor Alex ARIAS pt and her at BS Stable on RA Check stress test
--- NOTE | 2018-03-15 14:36 | P.PNIM ---
Subjective Interval history: Stress test shows small reversible perfusion defect and an estimated ejection fraction of 29%. Patient continues to improve. No new complaints. Physical Exam Vital signs: Vital Signs 03/14/18 15:00 03/14/18 16:00 03/14/18 17:00 Temperature Pulse Rate 100 H 102 H 110 H Respiratory Rate 29 H 16 22 Blood Pressure Pulse Oximetry 97 97 95 Pulse Oximetry [Exertion on Room Air] Pulse Oximetry [Resting on Room Air] 03/14/18 18:00 03/14/18 19:00 03/14/18 20:00 Temperature 98.2 F 97.8 F Pulse Rate 112 H 120 H 114 H Respiratory Rate 19 41 H 44 H Blood Pressure 132/67 144/75 H Pulse Oximetry 94 L 95 97 Pulse Oximetry [Exertion on Room Air] Pulse Oximetry [Resting on Room Air] 03/14/18 21:02 03/14/18 21:24 03/14/18 22:00 Temperature Pulse Rate 110 H 116 H 118 H Respiratory Rate 48 H 16 25 H Blood Pressure 172/81 H 150/74 H Pulse Oximetry 94 L 95 91 L Pulse Oximetry [Exertion on Room Air] Pulse Oximetry [Resting on Room Air] 03/14/18 23:00 03/14/18 23:31 03/15/18 00:00 Temperature 98.1 F Pulse Rate 110 H 106 H Respiratory Rate 36 H 31 H Blood Pressure 148/70 H 158/74 H 158/74 H Pulse Oximetry 97 96 Pulse Oximetry [Exertion on Room Air] Pulse Oximetry [Resting on Room Air] 03/15/18 01:00 03/15/18 02:00 03/15/18 03:00 Temperature Pulse Rate 98 H 102 H 96 H Respiratory Rate 28 H 26 H 19 Blood Pressure 159/92 H 148/84 H 135/77 Pulse Oximetry 95 89 L 96 Pulse Oximetry [Exertion on Room Air] Pulse Oximetry [Resting on Room Air] 03/15/18 03:02 03/15/18 03:59 03/15/18 04:00 Temperature 97.7 F Pulse Rate 96 H 94 H Respiratory Rate 18 28 H Blood Pressure 142/84 H Pulse Oximetry 97 96 Pulse Oximetry [Exertion on Room Air] Pulse Oximetry [Resting on Room Air] 03/15/18 05:00 03/15/18 06:00 03/15/18 07:00 Temperature Pulse Rate 100 H 84 94 H Respiratory Rate 18 17 10 L Blood Pressure 132/75 118/77 131/74 Pulse Oximetry 93 L 95 97 Pulse Oximetry [Exertion on Room Air] Pulse Oximetry [Resting on Room Air] 03/15/18 08:00 03/15/18 08:41 03/15/18 08:49 Temperature 97.7 F Pulse Rate 104 H 104 H Respiratory Rate 25 H 35 H Blood Pressure 180/94 H 160/80 H Pulse Oximetry 95 99 98 Pulse Oximetry [Exertion on Room Air] Pulse Oximetry [Resting on Room Air] 03/15/18 09:00 03/15/18 10:12 03/15/18 10:13 Temperature Pulse Rate 101 H 101 H Respiratory Rate 15 Blood Pressure Pulse Oximetry Pulse Oximetry [Exertion on Room Air] 98 Pulse Oximetry [Resting on Room Air] 96 03/15/18 13:41 Temperature 98.0 F Pulse Rate Respiratory Rate Blood Pressure Pulse Oximetry Pulse Oximetry [Exertion on Room Air] Pulse Oximetry [Resting on Room Air] Intake & Output 03/14/18 03/15/18 03/15/18 18:59 06:59 18:59 Intake Total 1330 / 1330 100 / 100 350 / 350 Output Total 1000 / 1000 Balance 330 / 330 100 / 100 350 / 350 Weight 121.3 kg Intake: IV 450 / 450 100 / 100 350 / 350 Azithromycin Inj 500 MG In NS 250 / 250 250 / 250 Inj 250 ML @ 250 mls/hr IV.SIG Q24H [facility] Rx#:[id number] Azactam Inj 2 GM In NS Inj 100 200 / 200 100 / 100 100 / 100 ML @ 200 mls/hr IV.SIG Q8H [facility] Rx#:[id number] Oral 880 / 880 0 / 0 Output: Urine 1000 / 1000 Other: # Voids 4 Date of Last Bowel Movement 03/14/18 03/14/18 03/15/18 # Bowel Movements 1 1 Narrative: GENERAL: NAD, A&Ox3 HEAD: Normocephalic. NECK: Supple, trachea midline. No lymphadenopathy. EYES: No scleral icterus. No injection or drainage. CARDIOVASCULAR: Regular rate and rhythm without murmurs, gallops, or rubs. RESPIRATORY: Breath sounds equal bilaterally. No accessory muscle use. GASTROINTESTINAL: Abdomen soft, non-tender, nondistended. MUSCULOSKELETAL: No cyanosis, or edema. SKIN: Warm and dry. NEURO: No focal neurological deficits. Results - Labs CBC & Chem 7: 03/15/18 04:48 03/15/18 04:48 Laboratory Results - last 24 hr 03/15/18 03/15/18 04:48 04:48 CBC w Diff Auto diff final WBC 21.5 H RBC 5.30 Hgb 14.9 Hct 45.2 MCV 85.3 MCH 28.0 MCHC 32.8 RDW 14.8 Plt Count 167 MPV 9.4 Neut % (Auto) 86.8 H Lymph % (Auto) 8.7 L [place] % (Auto) 1.7 Eos % (Auto) 0.1 Baso % (Auto) 2.7 H Neut # (Auto) 18.6 H Lymph # (Auto) 1.9 [place] # (Auto) 0.4 Eos # (Auto) 0.0 Baso # (Auto) 0.6 H WBC Differential . Differential Comment . Sodium 141 Potassium 3.8 Chloride 105 Carbon Dioxide 27.2 Anion Gap 9 BUN 30 H Creatinine 1.20 H Estimated GFR 44 L Random Glucose 145 H Calcium 8.4 L Total Bilirubin 0.6 AST 22 ALT 28 Alkaline Phosphatase 97 Total Protein 6.6 Albumin 2.9 L Microbiology 03/13/18 13:12 Blood - Peripheral Aerobic Blood Culture - Preliminary No growth in 2 days 03/13/18 13:12 Blood - Peripheral Anaerobic Blood Culture - Preliminary No growth in 2 days 03/13/18 13:00 Blood - Peripheral Aerobic Blood Culture - Preliminary No growth in 2 days 03/13/18 13:00 Blood - Peripheral Anaerobic Blood Culture - Preliminary No growth in 2 days - Imaging Impressions Myocardial Perfusion Scan Nuc Med 03/14/18 00:00 CONCLUSION: 1. Diffuse global hypokinesis greatest involving the septal wall. There is a markedly decreased N ejection fraction of 29%. 2. Small partially reversible perfusion defects involving the anteroseptal wall and apex. This could indicate areas of ischemia. Assessment and Plan - Assessment (1) Acute hypoxemic respiratory failure Code(s): J96.01 - Acute respiratory failure with hypoxia Status: Acute (2) Pulmonary edema Code(s): J81.1 - Chronic pulmonary edema Status: Acute (3) Pneumonia Code(s): J18.9 - Pneumonia, unspecified organism Status: Acute (4) Sepsis Code(s): A41.9 - Sepsis, unspecified organism Status: Acute (5) History of lobectomy of lung Code(s): Z90.2 - Acquired absence of lung [part of] Status: Chronic (6) H/O right mastectomy Code(s): Z90.11 - Acquired absence of right breast and nipple Status: Chronic (7) History of breast cancer Code(s): Z85.3 - Personal history of malignant neoplasm of breast Status: Chronic (8) History of histoplasmosis Code(s): Z86.19 - Personal history of other infectious and parasitic diseases Status: Resolved (9) Acute kidney insufficiency Code(s): N28.9 - Disorder of kidney and ureter, unspecified Status: Acute - Plan 72-year-old female admitted secondary to acute respiratory failure Small reversible defect on stress test. Ejection fraction based on stress test is approximately 29%. Will await further cardiology input prior to medical clearance. Oxygen walk test pending. Flash pulmonary edema (resolved) acute hypoxemic respiratory failure Probable pneumonia/atypical Elevated d-dimer (no PE) No evidence of CHF on echocardiogram Continue oxygen supplementation as needed Clinically patient is diuresing prior edema and clinically patient is improving Stable for transfer out of ICU Continue scheduled DuoNeb's Continue Rocephin, azithromycin, and vancomycin Negative CTA Pulmonology following Wean oxygen as tolerated Acute kidney insufficiency Clinically improving Likely related to strain and decreased urine output from third spacing Renal ultrasound shows a renal cyst but no acute findings of concern Continue to monitor renal function Sepsis Resolved History of breast cancer History of histoplasmosis History of right lower lobectomy Scarring of lung tissue could be contributory to predisposition and degree of pulmonary edema Hyperglycemia Follow blood sugars Insulin sliding scale Diabetic diet DVT prophylaxis Lovenox
--- NOTE | 2018-03-15 15:25 | P.PN ---
Subjective Interval history: Date of service 03-14 (I apparently didn't save the note) Pt feeling well, no complaints. Physical Exam Vital signs: Vital Signs 03/14/18 16:00 03/14/18 17:00 03/14/18 18:00 Temperature 98.2 F Pulse Rate 102 H 110 H 112 H Respiratory Rate 16 22 19 Blood Pressure Pulse Oximetry 97 95 94 L Pulse Oximetry [Exertion on Room Air] Pulse Oximetry [Resting on Room Air] 03/14/18 19:00 03/14/18 20:00 03/14/18 21:02 Temperature 97.8 F Pulse Rate 120 H 114 H 110 H Respiratory Rate 41 H 44 H 48 H Blood Pressure 132/67 144/75 H 172/81 H Pulse Oximetry 95 97 94 L Pulse Oximetry [Exertion on Room Air] Pulse Oximetry [Resting on Room Air] 03/14/18 21:24 03/14/18 22:00 03/14/18 23:00 Temperature Pulse Rate 116 H 118 H 110 H Respiratory Rate 16 25 H 36 H Blood Pressure 150/74 H 148/70 H Pulse Oximetry 95 91 L 97 Pulse Oximetry [Exertion on Room Air] Pulse Oximetry [Resting on Room Air] 03/14/18 23:31 03/15/18 00:00 03/15/18 01:00 Temperature 98.1 F Pulse Rate 106 H 98 H Respiratory Rate 31 H 28 H Blood Pressure 158/74 H 158/74 H 159/92 H Pulse Oximetry 96 95 Pulse Oximetry [Exertion on Room Air] Pulse Oximetry [Resting on Room Air] 03/15/18 02:00 03/15/18 03:00 03/15/18 03:02 Temperature Pulse Rate 102 H 96 H Respiratory Rate 26 H 19 Blood Pressure 148/84 H 135/77 Pulse Oximetry 89 L 96 97 Pulse Oximetry [Exertion on Room Air] Pulse Oximetry [Resting on Room Air] 03/15/18 03:59 03/15/18 04:00 03/15/18 05:00 Temperature 97.7 F Pulse Rate 96 H 94 H 100 H Respiratory Rate 18 28 H 18 Blood Pressure 142/84 H 132/75 Pulse Oximetry 96 93 L Pulse Oximetry [Exertion on Room Air] Pulse Oximetry [Resting on Room Air] 03/15/18 06:00 03/15/18 07:00 03/15/18 08:00 Temperature 97.7 F Pulse Rate 84 94 H 104 H Respiratory Rate 17 10 L 25 H Blood Pressure 118/77 131/74 180/94 H Pulse Oximetry 95 97 95 Pulse Oximetry [Exertion on Room Air] Pulse Oximetry [Resting on Room Air] 03/15/18 08:41 03/15/18 08:49 03/15/18 09:00 Temperature Pulse Rate 104 H 101 H Respiratory Rate 35 H Blood Pressure 160/80 H Pulse Oximetry 99 98 Pulse Oximetry [Exertion on Room Air] Pulse Oximetry [Resting on Room Air] 03/15/18 10:12 03/15/18 10:13 03/15/18 13:41 Temperature 98.0 F Pulse Rate 101 H Respiratory Rate 15 Blood Pressure Pulse Oximetry Pulse Oximetry [Exertion on Room Air] 98 Pulse Oximetry [Resting on Room Air] 96 03/15/18 15:03 Temperature Pulse Rate 100 H Respiratory Rate 20 Blood Pressure Pulse Oximetry Pulse Oximetry [Exertion on Room Air] Pulse Oximetry [Resting on Room Air] Intake & Output 03/14/18 03/15/18 03/15/18 18:59 06:59 18:59 Intake Total 1330 / 1330 100 / 100 350 / 350 Output Total 1000 / 1000 Balance 330 / 330 100 / 100 350 / 350 Weight 121.3 kg Intake: IV 450 / 450 100 / 100 350 / 350 Azithromycin Inj 500 MG In NS 250 / 250 250 / 250 Inj 250 ML @ 250 mls/hr IV.SIG Q24H [facility] Rx#:[id number] Azactam Inj 2 GM In NS Inj 100 200 / 200 100 / 100 100 / 100 ML @ 200 mls/hr IV.SIG Q8H [facility] Rx#:[id number] Oral 880 / 880 0 / 0 Output: Urine 1000 / 1000 Other: # Voids 4 Date of Last Bowel Movement 03/14/18 03/14/18 03/15/18 # Bowel Movements 1 1 - Constitutional no acute distress - Routine HEENT Exam Head: Present: normocephalic Eye: Present: EOMI ENT: Present: mucous membranes moist - Routine Neck Exam Present: supple. Absent: JVD - Routine Respiratory Exam Present: CTA bilaterally. Absent: accessory muscle use - Routine Cardiovascular Exam Absent: murmur - Routine Abdominal Exam Present: guarding - Routine Extremities Exam Absent: edema Results - Labs CBC & Chem 7: 03/15/18 04:48 03/15/18 04:48 Laboratory Results - last 24 hr 03/15/18 03/15/18 04:48 04:48 CBC w Diff Auto diff final WBC 21.5 H RBC 5.30 Hgb 14.9 Hct 45.2 MCV 85.3 MCH 28.0 MCHC 32.8 RDW 14.8 Plt Count 167 MPV 9.4 Neut % (Auto) 86.8 H Lymph % (Auto) 8.7 L [place] % (Auto) 1.7 Eos % (Auto) 0.1 Baso % (Auto) 2.7 H Neut # (Auto) 18.6 H Lymph # (Auto) 1.9 [place] # (Auto) 0.4 Eos # (Auto) 0.0 Baso # (Auto) 0.6 H WBC Differential . Differential Comment . Sodium 141 Potassium 3.8 Chloride 105 Carbon Dioxide 27.2 Anion Gap 9 BUN 30 H Creatinine 1.20 H Estimated GFR 44 L Random Glucose 145 H Calcium 8.4 L Total Bilirubin 0.6 AST 22 ALT 28 Alkaline Phosphatase 97 Total Protein 6.6 Albumin 2.9 L Microbiology 03/13/18 13:12 Blood - Peripheral Aerobic Blood Culture - Preliminary No growth in 2 days 03/13/18 13:12 Blood - Peripheral Anaerobic Blood Culture - Preliminary No growth in 2 days 03/13/18 13:00 Blood - Peripheral Aerobic Blood Culture - Preliminary No growth in 2 days 03/13/18 13:00 Blood - Peripheral Anaerobic Blood Culture - Preliminary No growth in 2 days - Imaging Impressions Myocardial Perfusion Scan Nuc Med 03/14/18 00:00 CONCLUSION: 1. Diffuse global hypokinesis greatest involving the septal wall. There is a markedly decreased N ejection fraction of 29%. 2. Small partially reversible perfusion defects involving the anteroseptal wall and apex. This could indicate areas of ischemia. Assessment and Plan - Plan CHF; probably acute diastolic, grossly normal LVEF by echo, though TDS due to obesity, a generally preserved LVEF does appear to be present (and I reviewed imaging again), suspect nuclear falsely low thusly, currently compensated. Slight trop elev; again likely due to ckd/chf, nuc stress limited due to obesity , small partially reversible defects seen, no history of chest pain and pattern not c/w/ acs; will continue medical mgt. I will see her back in my office in 1-2 weeks.
--- NOTE | 2018-03-15 15:55 | P.DS ---
Date of admission: 03/13/18 02:43 Primary care physician: UNKNOWN Brief History from admission: Patient is a 72-year-old female with past medical history significant for breast cancer treated with right mastectomy and radiation 5 years ago, right lower lobectomy approximately at 21 years of age for suspected Hodgkin's disease , biopsy showed histoplasmosis, morbid obesity. She apparently had cough and postnasal drip and voice changes for the last 2 weeks. According to the she went to the bathroom could not catch her breath became acutely short of breath called for help and passed out. EMS was called who intubated her with etomidate. In the ED patient was quite distressed from the ET tube. For this matter and improved oxygenation patient was extubated. However she was hypoxic post extubation and was placed on 100% nonrebreather. A chest x- ray showed bilateral interstitial infiltrates, and postop changes from right lower lobectomy. Patient has no history of CHF. I evaluated the patient in the [place] ICU. Her white count is 15.5. Her BUN is 18 with a creatinine of 1.6. BNP was 397 bicarb was 19 with an anion gap of 18. Chest x-ray shows bilateral interstitial infiltrates. It certainly possible she has community-acquired pneumonia/atypical pneumonia. I will get blood sputum and urine cultures, check for influenza, started on Rocephin azithromycin and give 1 dose of vancomycin. A CT pulmonary angiogram to rule out PE is being done. 2D echo to evaluate LV function. Because of interstitial edema placed on scheduled Lasix 20 mg every 12 hours already received 20 mg IV push. D- Dimer was elevated 5.88, Lovenox 120 mg x1 given while waiting for CT pulmonary angiogram DS: Diagnosis - Discharge Diagnosis (1) Acute hypoxemic respiratory failure Status: Acute (2) Pulmonary edema Status: Acute (3) Pneumonia Status: Acute (4) Sepsis Status: Acute (5) History of lobectomy of lung Status: Chronic (6) H/O right mastectomy Status: Chronic (7) History of breast cancer Status: Chronic (8) History of histoplasmosis Status: Resolved (9) Acute kidney insufficiency Status: Acute DS: Medications - Discharge Medications Prescriptions: furosemide 20 mg PO DAILY #30 tab Lactobacillus acidophilus 500 mmu cells PO TID #30 cap levofloxacin [Levaquin] 750 mg PO DAILY #5 tab metoprolol tartrate 25 mg PO BID #60 tab potassium chloride 10 meq PO DAILY #30 tab DS: Summary Hospital Course: Mrs. Wang is a 72 year old female. She was admitted secondary to acute respiratory distress. Sepsis was present at time of admit. Pneumonia was an etiology for her respiratory distress. However, she was also found to have CHF during the stay. She has had good resolution of her respiratory distress and failure. At this point she is been weaned off oxygen. Her fluid levels are now balance. At discharge she is going to need metoprolol and Lasix as a new treatments. She is continuing antibiotics and probiotics at time of discharge. She has demonstrated ability to ambulate without acute respiratory distress or hypoxia. Patient has been cleared by cardiology and pulmonology for discharge today. She will follow with cardiology and pulmonology as an outpatient. Medically stable and cleared for discharge home. - Time Spent with Patient Total time spent providing and/or coordinating discharge services: Less than 30 minutes - Quality: VTE Deep Vein Thrombosis/Pulmonary Embolism Present on Admission: No Exam Vital signs: Vital Signs 03/14/18 16:00 03/14/18 17:00 03/14/18 18:00 Temperature 98.2 F Pulse Rate 102 H 110 H 112 H Respiratory Rate 16 22 19 Blood Pressure Pulse Oximetry 97 95 94 L Pulse Oximetry [Exertion on Room Air] Pulse Oximetry [Resting on Room Air] 03/14/18 19:00 03/14/18 20:00 03/14/18 21:02 Temperature 97.8 F Pulse Rate 120 H 114 H 110 H Respiratory Rate 41 H 44 H 48 H Blood Pressure 132/67 144/75 H 172/81 H Pulse Oximetry 95 97 94 L Pulse Oximetry [Exertion on Room Air] Pulse Oximetry [Resting on Room Air] 03/14/18 21:24 03/14/18 22:00 03/14/18 23:00 Temperature Pulse Rate 116 H 118 H 110 H Respiratory Rate 16 25 H 36 H Blood Pressure 150/74 H 148/70 H Pulse Oximetry 95 91 L 97 Pulse Oximetry [Exertion on Room Air] Pulse Oximetry [Resting on Room Air] 03/14/18 23:31 03/15/18 00:00 03/15/18 01:00 Temperature 98.1 F Pulse Rate 106 H 98 H Respiratory Rate 31 H 28 H Blood Pressure 158/74 H 158/74 H 159/92 H Pulse Oximetry 96 95 Pulse Oximetry [Exertion on Room Air] Pulse Oximetry [Resting on Room Air] 03/15/18 02:00 03/15/18 03:00 03/15/18 03:02 Temperature Pulse Rate 102 H 96 H Respiratory Rate 26 H 19 Blood Pressure 148/84 H 135/77 Pulse Oximetry 89 L 96 97 Pulse Oximetry [Exertion on Room Air] Pulse Oximetry [Resting on Room Air] 03/15/18 03:59 03/15/18 04:00 03/15/18 05:00 Temperature 97.7 F Pulse Rate 96 H 94 H 100 H Respiratory Rate 18 28 H 18 Blood Pressure 142/84 H 132/75 Pulse Oximetry 96 93 L Pulse Oximetry [Exertion on Room Air] Pulse Oximetry [Resting on Room Air] 03/15/18 06:00 03/15/18 07:00 03/15/18 08:00 Temperature 97.7 F Pulse Rate 84 94 H 104 H Respiratory Rate 17 10 L 25 H Blood Pressure 118/77 131/74 180/94 H Pulse Oximetry 95 97 95 Pulse Oximetry [Exertion on Room Air] Pulse Oximetry [Resting on Room Air] 03/15/18 08:41 03/15/18 08:49 03/15/18 09:00 Temperature Pulse Rate 104 H 101 H Respiratory Rate 35 H Blood Pressure 160/80 H Pulse Oximetry 99 98 Pulse Oximetry [Exertion on Room Air] Pulse Oximetry [Resting on Room Air] 03/15/18 10:12 03/15/18 10:13 03/15/18 13:41 Temperature 98.0 F Pulse Rate 101 H Respiratory Rate 15 Blood Pressure Pulse Oximetry Pulse Oximetry [Exertion on Room Air] 98 Pulse Oximetry [Resting on Room Air] 96 03/15/18 15:03 Temperature Pulse Rate 100 H Respiratory Rate 20 Blood Pressure Pulse Oximetry Pulse Oximetry [Exertion on Room Air] Pulse Oximetry [Resting on Room Air] Intake & Output 03/14/18 03/15/18 03/15/18 18:59 06:59 18:59 Intake Total 1330 / 1330 100 / 100 350 / 350 Output Total 1000 / 1000 Balance 330 / 330 100 / 100 350 / 350 Weight 121.3 kg Intake: IV 450 / 450 100 / 100 350 / 350 Azithromycin Inj 500 MG In NS 250 / 250 250 / 250 Inj 250 ML @ 250 mls/hr IV.SIG Q24H [facility] Rx#:[id number] Azactam Inj 2 GM In NS Inj 100 200 / 200 100 / 100 100 / 100 ML @ 200 mls/hr IV.SIG Q8H [facility] Rx#:[id number] Oral 880 / 880 0 / 0 Output: Urine 1000 / 1000 Other: # Voids 4 Date of Last Bowel Movement 03/14/18 03/14/18 03/15/18 # Bowel Movements 1 1 Results Procedures completed during hospitalization: None Labs on day of discharge: Labs from last 24 hours 03/15/18 03/15/18 04:48 04:48 CBC w Diff Auto diff final WBC 21.5 H RBC 5.30 Hgb 14.9 Hct 45.2 MCV 85.3 MCH 28.0 MCHC 32.8 RDW 14.8 Plt Count 167 MPV 9.4 Neut % (Auto) 86.8 H Lymph % (Auto) 8.7 L [place] % (Auto) 1.7 Eos % (Auto) 0.1 Baso % (Auto) 2.7 H Neut # (Auto) 18.6 H Lymph # (Auto) 1.9 [place] # (Auto) 0.4 Eos # (Auto) 0.0 Baso # (Auto) 0.6 H WBC Differential . Differential Comment . Sodium 141 Potassium 3.8 Chloride 105 Carbon Dioxide 27.2 Anion Gap 9 BUN 30 H Creatinine 1.20 H Estimated GFR 44 L Random Glucose 145 H Calcium 8.4 L Total Bilirubin 0.6 AST 22 ALT 28 Alkaline Phosphatase 97 Total Protein 6.6 Albumin 2.9 L Preliminary micro results at discharge 03/13/18 13:12 Aerobic Blood Culture - Preliminary Blood - Peripheral No growth in 2 days Anaerobic Blood Culture - Preliminary No growth in 2 days 03/13/18 13:00 Aerobic Blood Culture - Preliminary Blood - Peripheral No growth in 2 days Anaerobic Blood Culture - Preliminary No growth in 2 days - Impressions ITS Impressions Abdomen/Bladder Ultrasound 03/13/18 00:00 CONCLUSION: 1. Small cortical cyst in the left kidney. 2. Mild thickening of the anterior aspect of the bladder wall. Cystoscopy may be of benefit for further assessment.. Chest CTA 03/13/18 00:00 CONCLUSION: 1. Examination quality mildly degraded by respiratory motion artifact. However , no PE is identified. 2. Severe groundglass opacity and consolidation bilaterally, as above. As described on the a prior chest x-ray pulmonary edema is a one consideration. Other inflammatory processes are possible as well. Suggest follow-up imaging to confirm resolution. 3. Small right pleural effusion. Myocardial Perfusion Scan Nuc Med 03/14/18 00:00 CONCLUSION: 1. Diffuse global hypokinesis greatest involving the septal wall. There is a markedly decreased N ejection fraction of 29%. 2. Small partially reversible perfusion defects involving the anteroseptal wall and apex. This could indicate areas of ischemia. Chest X-Ray 03/14/18 02:45 CONCLUSION: 1. Improved pleural-parenchymal disease in the right lower lung zone. 2. Improved positive fluid balance. Discharge Plan - Discharge Disposition Patient Disposition: Discharge Home - Discharge Condition Condition: Stable - Discharge Order Discharge Orders: Discharge Order (Routine); Ordered 03/15/18 Ordered By: Edy Wray - Discharge Details Anticipated Discharge Date: 03/15/18 - Physicians Team Primary Care Provider: UNKNOWN, Attending Provider: Edy Wray Other Providers: Agapito Giron MD ; Kanu Coronado MD
[2018-03-15 16:59] VITALS: BP 171/86; PULSE 108; RESP 50; TEMP 98.1
[2018-03-16 17:54] LABS: Anti-Nuclear Antibody Screen Pos (Neg)
== END 2018-03-15 17:45 | disposition home or self-care (01) ==
LOC: PHED 00:57 → PHEDA 02:43 → PHICU 03:49
PROVIDERS: ADMIT Hospitalist; ATTEND Hospitalist